=== PATIENT | female | born 1965 | race Caucasian/White ===

== ENCOUNTER 2019-04-08 22:57 | Inpatient (IN) | payer MEDICAID ==
[~2019-04-08] VITALS: Ht 154.9 cm; Wt 74.8 kg
--- NOTE | 2019-04-08 22:57 | NUR ---
PT MARK JACKSONS. TAKEN TO BED 4
[2019-04-08 23:02] VITALS: BP 94/61
--- NOTE | 2019-04-08 23:07 | NUR ---
53 Y/O FEMALE BIBA BLS WITH C/O ABD DISTENTION. PER PT SIEVE MAKER THE DISTENTION WAS NOTED TONIGHT WHEN THEY WERE GETTING HER CHANGED. SIEVE MAKER STATES PT NORMALLY HAS LARGE BM IN THE MORNING, BUT TODAY SHE HAD SMALL BM. ABD SOFT, NONTENDER, AND DISTENDED. PT CALM AND NONVERBAL. VSS
[2019-04-08 23:26] LABS: APPEARANCE,URINE CLEAR (CLEAR); BILIRUBIN,URINE NEGATIVE (NEGATIVE); BLOOD, URINE NEGATIVE (NEGATIVE); COLOR,URINE YELLOW (YELLOW); LEUKOCYTE ESTERASE ,URINE NEGATIVE (NEGATIVE); NITRITE, URINE NEGATIVE (NEGATIVE); UGLUCOSE NEGATIVE (NEGATIVE)
[2019-04-08 23:38] LABS: BASOPHILS % (AUTO) 0.7 % (0.0-2.0); EOSINOPHILS # (AUTO) 0.3 K/uL (0-0.4); EOSINOPHILS % (AUTO) 5.7 % (0.0-4.0); HEMATOCRIT 40.8 % (36-48); HEMOGLOBIN 13.3 g/dL (12.0-16.0); LYMPHOCYTES % (AUTO) 45.2 % (20.5-51.1); MEAN CORPUSCULAR HEMOGLOBIN 31 pg (27-31); MEAN CORPUSCULAR HGB CONC 33 g/dL (33-37); MEAN CORPUSCULAR VOLUME 93.5 fL (80-94); MONOCYTES # (AUTO) 0.4 K/uL (0.8-1.0); MONOCYTES % (AUTO) 9.4 % (1.7-9.3); NEUTROPHILS # (AUTO) 1.7 K/uL (1.8-7.7); PLATELET COUNT (AUTO) 186 K/uL (140-450); RED BLOOD CELL COUNT(AUTO) 4.36 MIL/uL (4.20-5.40); RED CELL DISTRIBUTION WIDTH 13.7 % (11.6-13.7); WHITE BLOOD COUNT (AUTO) 4.4 K/uL (4.8-10.8)
--- NOTE | 2019-04-08 23:40 | NUR ---
PT TAKEN TO CT
--- NOTE | 2019-04-08 23:55 | NUR ---
PT RETURNED FROM CT VIA [facility]
[2019-04-08 23:56] LABS: ANION GAP 13.9 (8-16); CARBON DIOXIDE 26.2 mmol/L (21-32); CREATININE 0.7 mg/dL (0.6-1.3); POTASSIUM 4.1 mmol/L (3.5-5.1)
[2019-04-09] LABS: ALBUMIN 3.7 g/dL (3.4-5.0); TOTAL BILIRUBIN 0.2 mg/dL (0.0-1.0)
--- NOTE | 2019-04-09 00:51 | NUR ---
PT IN BED, RESTING WITH EYES CLOSED. VISIBLE RISE AND FALL OF THE CHEST. PT REMAINS ON MONITOR. VSS. WILL CONTINUE TO MONITOR
--- NOTE | 2019-04-09 01:54 | NUR ---
X-Ray at bedside.
--- NOTE | 2019-04-09 01:57 | NUR ---
LAYIN IN BED ON LT SIDE, RR EVEN AND UNLABORED. NO CRYING IN PAIN. SEIZURE PRECATUTIONS REMAIN IN PLACE, X2 SIDE RAILS RAISED. VSS. REGIONAL HR MANAGER AT PT BEDSIDE. WILL CONTINUE TO MONITOR.
[2019-04-09] MEDS ORDERED: NACL 0.9% 1,000 ML IV SCH (02:49)
[2019-04-09] MEDS ORDERED: LORazepam 2 MG/ML VIAL IM/IVP PRN (02:50)
[2019-04-09] MEDS ORDERED: ACETAMINOPHEN 325 MG TAB PO PRN (02:50)
[2019-04-09] MEDS ORDERED: ONDANSETRON 4 MG/2 ML VIAL IM/IVP PRN (02:50)
[2019-04-09] MEDS ORDERED: DOCUSATE SODIUM 100 MG GELCAP PO PRN (02:50)
[2019-04-09] MEDS ORDERED: ZOLPIDEM 5 MG TAB PO PRN (02:50)
[2019-04-09] MEDS ORDERED: MORPHINE SULFATE 2 MG/ML SYR IVP PRN (02:50)
[2019-04-09] MEDS ORDERED: HYDROcodone/APAP 5/325 MG 1 TAB TAB PO PRN (02:50)
[2019-04-09] MEDS ORDERED: DEXT 5% / NACL 0.45% 1,000 ML IV ONE (03:00)
[2019-04-09] MEDS ORDERED: ATOR10TA51 PO (03:25)
[2019-04-09] MEDS ORDERED: ALEN70TA9 PO (03:25)
[2019-04-09] MEDS ORDERED: DIAZ2.5G2 RC ×2 (03:25→13:55)
[2019-04-09] MEDS ORDERED: CALC1TAB72 PO (03:25)
[2019-04-09] MEDS ORDERED: BACL10TA4 PO (03:25)
[2019-04-09] MEDS ORDERED: TOPI100T33 PO (03:25)
[2019-04-09] MEDS ORDERED: LACO200T PO (03:25)
[2019-04-09] MEDS ORDERED: BISA-188 RC (03:25)
[2019-04-09] MEDS ORDERED: NA P133E RC (03:25)
[2019-04-09] MEDS ORDERED: [UNRECOGNIZED DRUG - OTHER] PO (03:25)
[2019-04-09] MEDS ORDERED: CLOB20TA PO (03:25)
[2019-04-09] MEDS ORDERED: ACET-2619 PO (03:25)
[2019-04-09] MEDS ORDERED: BISACODYL 10 MG SUPP RC SCH (03:30)
[2019-04-09] MEDS ORDERED: SODIUM PHOSPHATE 118 ML ENEM RC PRN (03:35)
[2019-04-09 03:38] LABS: BARBITURATE, URINE NEG. ng/ml (NEG <=200); BENZODIAZEPINE, URINE POS. ng/mL (NEG <=200); CANNABINOID, URINE NEG. ng/mL (NEG <=50); COCAINE, URINE NEG. ng/mL (NEG <=300); OPIATE, URINE NEG. ng/mL (NEG <=2000); PHENCYCLIDINE SCREEN,URINE NEG. ng/mL (NEG <=25)
--- NOTE | 2019-04-09 03:40 | NUR ---
RECEIVED FROM ER NURSE CLAUDIA VIA AIDAN. PATIENT IS CONTRACTED ON RIGHT ARM. IV ACCESS ON LEFT WRIST 20 GAUGE, BOARDED AND WRAPPED DUE TO PATIENT BITING ON LEFT HAND. ON ROOM AIR. SKIN IS INTACT. MRSA SWAB DONE AND SENT TO LAB. INITIAL ASSESSMENT DONE. BELONGINGS CHECKLIST SIGNED. BED IN LOW. ON SEIZURE PRECAUTION. SAFETY MEASURES IN PLACE. WILL CONTINUE TO MONITOR PATIENT.
--- NOTE | 2019-04-09 03:43 | NUR ---
Patient will be admitted to care of DR DAUGHERTY. Admited to TELE. Will go to room 108A. Belongings list completed. Report to RK SHEA.
[2019-04-09 03:46] LABS: CHOL/HDL RATIO 1.6 (1-4.5); MAGNESIUM 2.2 mg/dL (1.8-2.4); PHOSPHORUS 3.9 mg/dL (2.5-4.9); THYROID STIMULATING HORMONE 2.03 uIU/mL (0.34-3.74)
[2019-04-09 03:48] LABS: PROTHROMBIN TIME 10.2 secs (10.8-13.4)
[2019-04-09 04:00] VITALS: BP 110/66
[2019-04-09] MEDS ORDERED: ALBUTEROL SULFATE/IPRATROPIU 3 ML SOL IH PRN (04:05)
--- NOTE | 2019-04-09 04:06 | NUR ---
DULCOLAX SUPPOSITORY GIVEN AT THIS TIME. WILL CONTINUE TO MONITOR PATIENT.
[2019-04-09] MEDS ORDERED: PIPER/TAZO 3.375GM/D5W PREMIX 50 ML IV SCH ×2 (04:30→12:00)
[2019-04-09] MEDS ORDERED: PIPERACILLIN/TAZOBACTAM 3.375 GM VIAL IV ONE (04:40)
[2019-04-09 06:23] LABS: BASOPHILS # (AUTO) 0.1 K/uL (0.00-0.22); BASOPHILS % (AUTO) 1.1 % (0.0-2.0); EOSINOPHILS # (AUTO) 0.3 K/uL (0-0.4); EOSINOPHILS % (AUTO) 5.5 % (0.0-4.0); HEMATOCRIT 40.8 % (36-48); HEMOGLOBIN 13.3 g/dL (12.0-16.0); LYMPHOCYTES # (AUTO) 1.9 K/uL (2.5-16.5); LYMPHOCYTES % (AUTO) 40.2 % (20.5-51.1); MEAN CORPUSCULAR HEMOGLOBIN 31 pg (27-31); MEAN CORPUSCULAR HGB CONC 33 g/dL (33-37); MEAN CORPUSCULAR VOLUME 93.9 fL (80-94); MONOCYTES # (AUTO) 0.3 K/uL (0.8-1.0); MONOCYTES % (AUTO) 6.9 % (1.7-9.3); NEUTROPHILS # (AUTO) 2.1 K/uL (1.8-7.7); NEUTROPHILS % (AUTO) 46.3 % (42.2-75.2); PLATELET COUNT (AUTO) 196 K/uL (140-450); RED BLOOD CELL COUNT(AUTO) 4.34 MIL/uL (4.20-5.40); RED CELL DISTRIBUTION WIDTH 13.9 % (11.6-13.7); WHITE BLOOD COUNT (AUTO) 4.6 K/uL (4.8-10.8)
[2019-04-09 06:33] LABS: ANION GAP 14.3 (8-16); CARBON DIOXIDE 24.6 mmol/L (21-32); CREATININE 0.6 mg/dL (0.6-1.3); POTASSIUM 3.9 mmol/L (3.5-5.1)
[2019-04-09 06:46] LABS: MAGNESIUM 2.1 mg/dL (1.8-2.4); PHOSPHORUS 3.8 mg/dL (2.5-4.9)
--- NOTE | 2019-04-09 06:47 | NUR ---
PT IN STABLE CONDITION. CALL LIGHT PLACED WITHIN PATIENT REACH. WILL ENDORSE TO AM SHIFT NURSE FOR CONTINUITY OF CARE.
[2019-04-09] MEDS: ALBUTEROL SULFATE/IPRATROPIU 3 ML SOL IH SCH ×3 (07:00→20:27)
--- NOTE | 2019-04-09 07:06 | NUR ---
RECEIVED PATIENT FROM NIGHT NURSE, PATIENT IN STABLE CONDITION.
[2019-04-09 08:00] VITALS: BP 103/62
--- NOTE | 2019-04-09 08:22 | NUR ---
PATIENT HAS BEEN SCREENED AND CATEGORIZED MODERATE NUTRITION RISK. PATIENT WILL BE SEEN WITHIN 3-5 DAYS OF ADMISSION. 04/11/19 04/13/[address]
[2019-04-09] MEDS ORDERED: ATORVASTATIN 20 MG TAB ONE (08:42)
[2019-04-09] MEDS ORDERED: CHOLECALCIFEROL PO SCH (09:00)
[2019-04-09] MEDS: ATORVASTATIN 20 MG TAB PO SCH (09:00)
[2019-04-09] MEDS: CHOLECALCIFEROL 1,000 IU TAB PO SCH (09:01)
[2019-04-09] MEDS: BACLOFEN 10 MG TAB PO SCH ×3 (09:01→18:10)
[2019-04-09] MEDS: LACTOBACILLUS RHAMNOSUS GG 1 EACH CAP PO SCH (09:01)
[2019-04-09] MEDS: TOPIRAMATE 100 MG TAB PO SCH ×2 (09:05→20:50)
--- NOTE | 2019-04-09 09:15 | NUR ---
PATIENT CLEANED, CHANGED LINEN CLEANED, PATIENT REPOSITIONED, MEDICATIONS GIVEN AT THIS TIME. WILL CONTINUE TO FOLLOW UP.
[2019-04-09] MEDS ORDERED: MAGNESIUM HYDROXIDE 2400 MG/30 ML UDC PO PRN (11:25)
[2019-04-09 12:00] VITALS: BP 116/53
[2019-04-09] MEDS ORDERED: MINERAL OIL 135 ML ENEM RC SCH (12:00)
[2019-04-09] MEDS: PSYLLIUM 12.2 GM/PKT PO SCH (12:38)
[2019-04-09] MEDS ORDERED: DIAZEPAM 15 MG RC SCH (13:40)
[2019-04-09] MEDS ORDERED: ACETAMINOPHEN 325 MG TAB PO SCH (13:40)
[2019-04-09] MEDS: NACL 0.45% 1,000 ML IV SCH (13:40)
[2019-04-09] MEDS ORDERED: LACT10SO1 PO (13:55)
[2019-04-09] MEDS ORDERED: SYN.1 PO (13:55)
[2019-04-09] MEDS ORDERED: LEVE500T9 PO (13:55)
[2019-04-09] MEDS ORDERED: MAGN400S60 PO (13:55)
[2019-04-09] MEDS ORDERED: FURO-572 PO (13:55)
[2019-04-09] MEDS ORDERED: CLON0.5T PO (13:55)
[2019-04-09] MEDS ORDERED: MIRABULK PO (13:55)
[2019-04-09] MEDS ORDERED: VITA1TAB44 PO (13:55)
[2019-04-09] MEDS ORDERED: LEVE1000 PO (13:55)
--- NOTE | 2019-04-09 14:02 | NUR ---
Shipper Note: Basic Screen: Yes High Risk DC Screen Yes Name: GAYE CHAN [place] Relationship: CONSERVATOR Pre-Admission Living Arrangements: Other Other: [facility] Prior ADL Needs Assistance Current Home Health Name/Tel: N/A Current DME/02 Name/Tel: [employer] Current Hospice Name/Tel: N/A Current Dialysis Name/Tel: N/A Healthcare Decision Maker: Conservator/Public Guardi Advance Directive No Discipline: Case Mgt/Social Svcs Tentative Discharge Plan/Destination: Other Other: [facility] Will require assistance post discharge: No Referred to Janitorial Account Manager: No Tentative Discharge Plan Summary: Patient is a 53-year-old female admitted for pancreatitis. Patient has PMHX of seizures, hypothyroidism, and intellectual disability. Patient was admitted from [facility]. SW contacted Yakov - Visual Merchandising Director to verify demographics of patient. Per Yakov, patient has been a resident at [facility] for 15 years. Yakov reported information for patient's conservator: Gaye Chan [phone] and [facility] worker: Daphnie Barajas [phone]. Yakov reported that each are aware of patient's hospitalization. Yakov stated that facility does not accommodate IV antibiotics. Yakov said that patient's tentative discharge plan is to return to [facility]. No further needs identified. Signature: WESLY Alcaraz Date: Apr 09, 2019 Time: 14:00
[2019-04-09] MEDS ORDERED: AZITHROMYCIN 250 MG TAB PO SCH (15:00)
[2019-04-09 16:00] VITALS: BP 129/87
[2019-04-09] MEDS ORDERED: MANG PO SCH (17:00)
[2019-04-09] MEDS ORDERED: MAG PO SCH (17:00)
[2019-04-09] MEDS ORDERED: [UNRECOGNIZED DRUG - OTHER] PO SCH (17:00)
[2019-04-09] MEDS ORDERED: COPP PO SCH (17:00)
[2019-04-09] MEDS ORDERED: BORON PO SCH (17:00)
[2019-04-09] MEDS ORDERED: D3 PO SCH (17:00)
[2019-04-09] MEDS ORDERED: CALC PO SCH (17:00)
--- NOTE | 2019-04-09 19:09 | NUR ---
ENDORSED CARE TO AGRICULTURAL ENGINEERING TECHNICIANS NURSE. PATIENT IN STABLE CONDITION.
--- NOTE | 2019-04-09 19:25 | NUR ---
RECEIVED BEDSIDE REPORT FROM DAY SHIFT NURSE. PATIENT IS AWAKE AND COOPERATIVE. RESPIRATION EVEN UNLABORED ON ROOM AIR. NO DISTRESS NOTED. SKIN IS WARM AND DRY. IV PATENT AND INTACT BOARDED AND WRAPPED. PLAN OF CARE WAS DISCUSSED. ALL SAFETY MEASURES IN PLACE. BED IS AT LOW POSITION. CALL LIGHT WITHIN REACH. WILL CONTINUE TO MONITOR.
[2019-04-09 20:00] VITALS: BP 120/60
--- NOTE | 2019-04-09 20:00 | NUR ---
INITIAL ASSESSMENT DONE. VITALS WERE TAKEN. PATIENT IN STABLE CONDITION. WILL CONTINUE TO MONITOR.
--- NOTE | 2019-04-09 20:45 | NUR ---
ALL SCHEDULED MEDS WERE GIVEN PER ORDER. NO ASE NOTED. WILL CONTINUE TO MONITOR.
[2019-04-09] MEDS: CLOBAZAM 20 MG PO SCH (20:47)
[2019-04-09] MEDS: levETIRAcetam 500 MG TAB PO SCH (20:48)
[2019-04-09] MEDS: clonazePAM 0.5 MG TAB PO SCH (20:49)
[2019-04-09] MEDS: MAGNESIUM HYDROXIDE 2400 MG/30 ML UDC PO SCH (20:50)
[2019-04-09] MEDS: VIMPAT 200MG TABLET PO SCH (20:51)
[2019-04-09] MEDS ORDERED: LEVETIRACETAM 250 MG PO SCH (21:00)
--- NOTE | 2019-04-09 23:46 | NUR ---
PATIENT IS SCREAMING AND RESTLESS. VITALS WERE TAKEN. PRN ATIVAN GIVEN PER ORDER. WILL CONTINUE TO MONITOR.
[2019-04-10] VITALS: BP 125/55
--- NOTE | 2019-04-10 01:59 | NUR ---
PATIENT SCREAMING, MOANING, AND CRYING FOR AT LEAST 5MINS. PRN PAIN MED ADMINISTERED PER ORDER. WILL CONTINUE TO MONITOR.
--- NOTE | 2019-04-10 02:36 | NUR ---
PATIENT SCREAMING AND MOANING ON AND OFF. NOTIFIED MD. AWAITING FOR NEW ORDERS.
[2019-04-10] MEDS ORDERED: LORazepam 2 MG/ML VIAL IVP SCH (02:55)
--- NOTE | 2019-04-10 02:57 | NUR ---
GIVEN ATIVAN AND MYLANTA MD ORDERED. PT TOLERATED WELL.
[2019-04-10] MEDS ORDERED: MORPHINE SULFATE 2 MG/ML SYR IVP SCH (03:00)
[2019-04-10] MEDS ORDERED: ALUMINUM HYD/MAG/SIMETHICONE 30 ML UDC PO SCH (03:00)
[2019-04-10 04:00] VITALS: BP 110/56
[2019-04-10] MEDS ORDERED: KETOROLAC 30 MG/ML VIAL IVP SCH (04:00)
--- NOTE | 2019-04-10 04:02 | NUR ---
PATIENT STILL SCREAMING AND MOANING ON AND OFF. ORDER TORADOL 30MG FOR PAIN. WILL CONTINUE TO MONITOR.
--- NOTE | 2019-04-10 04:16 | NUR ---
VITALS WERE TAKEN. PATIENT IN STABLE CONDITION. NO DISTRESS NOTED. WILL CONTINUE TO MONITOR.
[2019-04-10] MEDS ORDERED: SIMETHICONE 40 MG/0.6 ML PO SCH (05:30)
[2019-04-10] MEDS: NACL 0.45% 1,000 ML IV SCH ×2 (06:09→22:58)
[2019-04-10] MEDS: LEVOTHYROXINE 0.1 MG TAB PO SCH (06:42)
[2019-04-10] MEDS: CLOBAZAM 20 MG PO SCH ×2 (06:42→20:00)
[2019-04-10] MEDS: ALBUTEROL SULFATE/IPRATROPIU 3 ML SOL IH SCH ×3 (07:19→19:41)
--- NOTE | 2019-04-10 07:27 | NUR ---
ENDORSED PATIENT TO DAY SHIFT NURSE. PATIENT IN STABLE CONDITION
[2019-04-10] MEDS ORDERED: SODIUM PHOSPHATE 118 ML ENEM RC SCH (07:29)
--- NOTE | 2019-04-10 07:30 | NUR ---
RECEIVED PT FROM HOME HEALTH ADMINISTRATOR NURSETRISH, PT IS AWAKE AND IS AGITATED, MEDICINE FOR AGITATION WAS GIVEN BY HOME HEALTH ADMINISTRATOR NURSE, SIDE RAILS AND CALL LIGHT WITHIN REACH, BED ALARM ACTIVATED, SEIZURE PRECAUTION ENFORCED, BED IN LOW POSITION, PT HAS MENTAL RETARDATION, IV LINE ON THE LEFT FA G. 20 WITH D5 1?2 NS INFUSING AT 60ML/HR, NO SIGN OF DISTRESS NOTED AND WILL MONITOR PT.
[2019-04-10 08:00] VITALS: BP 112/62
[2019-04-10] MEDS ORDERED: NON-FORMULARY ITEM (Atorvastatin Calcium 1 TAB) PO SCH (09:00)
[2019-04-10] MEDS ORDERED: NON-FORMULARY ITEM (Lactulose 10 GM) PO SCH (09:00)
[2019-04-10] MEDS: LACTOBACILLUS RHAMNOSUS GG 1 EACH CAP PO SCH (09:24)
[2019-04-10] MEDS: AZITHROMYCIN 250 MG TAB PO SCH (09:25)
[2019-04-10] MEDS: BACLOFEN 10 MG TAB PO SCH ×3 (09:25→17:37)
[2019-04-10] MEDS: CHOLECALCIFEROL 1,000 IU TAB PO SCH (09:26)
[2019-04-10] MEDS: FUROSEMIDE 20 MG TAB PO SCH (09:26)
[2019-04-10] MEDS: TOPIRAMATE 100 MG TAB PO SCH ×2 (09:27→21:52)
[2019-04-10] MEDS: VIT-B COMP/VIT-C/FOLIC ACID 1 TAB PO SCH (09:27)
[2019-04-10] MEDS: levETIRAcetam 500 MG TAB PO SCH ×2 (09:27→21:53)
[2019-04-10] MEDS: ATORVASTATIN 20 MG TAB PO SCH (09:30)
[2019-04-10] MEDS: clonazePAM 0.5 MG TAB PO SCH ×2 (09:32→21:54)
--- NOTE | 2019-04-10 09:32 | NUR ---
PT IS AWAKE AND ORAL MEDICATIONS WERE GIVEN TO PT WILL MONITOR PT.
[2019-04-10] MEDS: POLYETHYLENE GLYCOL 17 GM/PKT PO SCH (09:34)
[2019-04-10] MEDS: PSYLLIUM 12.2 GM/PKT PO SCH (09:35)
[2019-04-10] MEDS: VIMPAT 200MG TABLET PO SCH ×2 (09:53→21:48)
[2019-04-10] MEDS: HYDRAGUARD CREAM TP SCH (10:00)
[2019-04-10 10:06] LABS: BASOPHILS % (AUTO) 0.5 % (0.0-2.0); EOSINOPHILS # (AUTO) 0.2 K/uL (0-0.4); EOSINOPHILS % (AUTO) 3.6 % (0.0-4.0); HEMATOCRIT 38.6 % (36-48); HEMOGLOBIN 12.8 g/dL (12.0-16.0); LYMPHOCYTES # (AUTO) 1.7 K/uL (2.5-16.5); LYMPHOCYTES % (AUTO) 38.6 % (20.5-51.1); MEAN CORPUSCULAR HEMOGLOBIN 31 pg (27-31); MEAN CORPUSCULAR HGB CONC 33 g/dL (33-37); MEAN CORPUSCULAR VOLUME 92.4 fL (80-94); MONOCYTES # (AUTO) 0.3 K/uL (0.8-1.0); MONOCYTES % (AUTO) 6.6 % (1.7-9.3); NEUTROPHILS # (AUTO) 2.2 K/uL (1.8-7.7); NEUTROPHILS % (AUTO) 50.7 % (42.2-75.2); PLATELET COUNT (AUTO) 183 K/uL (140-450); RED BLOOD CELL COUNT(AUTO) 4.18 MIL/uL (4.20-5.40); RED CELL DISTRIBUTION WIDTH 13.8 % (11.6-13.7); WHITE BLOOD COUNT (AUTO) 4.3 K/uL (4.8-10.8)
[2019-04-10 10:26] LABS: ANION GAP 14.3 (8-16); CARBON DIOXIDE 22.3 mmol/L (21-32); CREATININE 0.6 mg/dL (0.6-1.3); POTASSIUM 3.6 mmol/L (3.5-5.1)
[2019-04-10 10:33] LABS: MAGNESIUM 2.3 mg/dL (1.8-2.4); PHOSPHORUS 2.7 mg/dL (2.5-4.9)
--- NOTE | 2019-04-10 11:15 | NUR ---
PT WQS NOTED TO BE SO SLEEPY BUT AROUSABLE, V/S STABLE, WAS TRANSFERRED TO MS NOW.
[2019-04-10 12:00] VITALS: BP 90/45
--- NOTE | 2019-04-10 13:15 | NUR ---
PT' SACRAL AREA WAS REINFORCED WITH OPTIFOAM DRESSING FOR THE ERYTHEMA NOTED BROUGHT BY IAD, HYDRAGUARD APPLIED.
[2019-04-10 16:00] VITALS: BP 115/62
--- NOTE | 2019-04-10 16:15 | NUR ---
INFORMED THAT PT IS RUNNING SINUS BRADYCARDIA AND IS SO SLEEPY BUT AROUSABLE, DR. BURROUGHS SAID THAT HE WILL TRANSFER TO TELE UNTIL FULLY AWAKE.
[2019-04-10] MEDS ORDERED: MELATONIN 3 MG TAB PO PRN (16:45)
--- NOTE | 2019-04-10 19:30 | NUR ---
RECEIVED REPORT FROM AM RN IN BED AWAKE AND ALERT. NO RESTLESSNESS NOTED AT THIS TIME. NONE VERBAL AT THIS TIME. TOTAL CARE RT HX. MENTAL RETARDATION. BED RAILS PADDED FOR SEIZURE PRECAUTIONS RT HX. OF SEIZURES. WITH IVF INFUSING WELL. IVF SITE WITH KERLIX WRAP RT PT. PER PREVIOUS RN BITES INTO TUBING. NEEDS WILL BE ANTICIPATED AND WILL BE MET. TOTAL CARE. TELEMETRY MONITORING. BED ALARM ON.
--- NOTE | 2019-04-10 19:35 | NUR ---
ENDORSED PT TO WARD SECRETARY NURSE FOR CONTINUITY OF CARE.
[2019-04-10 20:25] VITALS: BP 124/55
[2019-04-10] MEDS: MAGNESIUM HYDROXIDE 2400 MG/30 ML UDC PO SCH (21:54)
--- NOTE | 2019-04-10 22:00 | NUR ---
PT. SLEEPING BUT WAKES UP EASILY WHEN TOUCHED. TURNED TO SIDES BY CNAS WITH PILLOW SUPPORT TO PRESSURE AREAS. TOTAL CARE. NO RESTLESSNESS NOTED. TELEMETRY MONITORING.
[2019-04-11] VITALS: BP 115/56
--- NOTE | 2019-04-11 00:30 | NUR ---
PT. AWAKE AND BEING TURNED BY CNAS TO SIDE. NO RESTLESSNESS. SMILING A LOT. AFEBRILE. KEPT CLEAN AND DRY. BED ALARM ON.
--- NOTE | 2019-04-11 02:55 | NUR ---
SLEEPING AT THIS TIME. NEEDS ANTICIPATED AND WILL BE MET.
[2019-04-11 04:00] VITALS: BP 100/50
[2019-04-11] MEDS: ALBUTEROL SULFATE/IPRATROPIU 3 ML SOL IH SCH ×2 (06:22→13:35)
[2019-04-11] MEDS: LEVOTHYROXINE 0.1 MG TAB PO SCH (06:57)
[2019-04-11] MEDS: CLOBAZAM 20 MG PO SCH (06:57)
--- NOTE | 2019-04-11 07:03 | NUR ---
WILL ENDORSE TO AM RN FOR CONTINUITY OF CARE. PT. AT THIS TIME AWAKE AND ALERT.
--- NOTE | 2019-04-11 07:15 | NUR ---
RECEIVED PT FROM SERVICES TECH NURSEROLAND, PT IS AWAKE AND CALM SEATED ON HER BED WITH SIDE RAILS UP AND CALL LIGHT WITHIN REACH, FALL PRECAUTION ENFORCED, BED IN LOW POSITION, SEIZURE PRECAUTION IN PLACE, IV LINE ON THE LEFT FA G. 20 WITH 1/2 NS INFUSING AT 60ML/HR, NON-VERBAL WITH MENTAL DISABILITY, NO SIGN OF DISTRESS NOTED AND WILL MONITOR PT.
[2019-04-11 07:30] VITALS: BP 118/59
[2019-04-11] MEDS: POLYETHYLENE GLYCOL 17 GM/PKT PO SCH (08:36)
[2019-04-11] MEDS: PSYLLIUM 12.2 GM/PKT PO SCH (08:37)
[2019-04-11] MEDS: LACTOBACILLUS RHAMNOSUS GG 1 EACH CAP PO SCH (08:38)
[2019-04-11] MEDS: AZITHROMYCIN 250 MG TAB PO SCH (08:39)
[2019-04-11] MEDS: levETIRAcetam 500 MG TAB PO SCH (08:39)
[2019-04-11] MEDS: TOPIRAMATE 100 MG TAB PO SCH (08:40)
[2019-04-11] MEDS: ATORVASTATIN 20 MG TAB PO SCH (08:40)
--- NOTE | 2019-04-11 08:40 | NUR ---
PT IS AWAKE AND ORAL MEDICATIONS WERE GIVEN, KLONOPIN WAS HELD AND NOT GIVEN PER DR. AGRAWAL, MEDICATIONS CRUSHED AND GIVEN WITH APPLE SAUCE, TOLERATED, NO SIGN OF DISTRESS NOTED
[2019-04-11] MEDS: VIT-B COMP/VIT-C/FOLIC ACID 1 TAB PO SCH (08:41)
[2019-04-11] MEDS: CHOLECALCIFEROL 1,000 IU TAB PO SCH (08:41)
[2019-04-11] MEDS: BACLOFEN 10 MG TAB PO SCH ×2 (08:41→12:26)
[2019-04-11] MEDS: FUROSEMIDE 20 MG TAB PO SCH (08:45)
[2019-04-11] MEDS: clonazePAM 0.5 MG TAB PO SCH (08:45)
[2019-04-11] MEDS ORDERED: AMOX-1000 PO (08:51)
[2019-04-11] MEDS ORDERED: METPCK PO (08:51)
[2019-04-11] MEDS ORDERED: DOCU-299 PO (08:51)
--- NOTE | 2019-04-11 09:04 | NUR ---
CONTACTED [facility], SPOKE WITH DAVE (OPERATIONS PLANNER) REGARDING PT'S DISCHARGE BACK TO THEIR FACILITY. PER DAVE, SHE WILL CALL BACK FOR THE ETA FOR FOREIGN LANGUAGE TEACHER. MIRANDA-RK ASSIGNED MADE AWARE.
[2019-04-11] MEDS: VIMPAT 200MG TABLET PO SCH (09:08)
[2019-04-11] MEDS: HYDRAGUARD CREAM TP SCH (09:16)
[2019-04-11] MEDS ORDERED: BISA-213 RC (09:22)
--- NOTE | 2019-04-11 10:00 | NUR ---
DAVE CALLED BACK WITH [facility] FOR INJECTION MOLDING MACHINE OPERATOR AFTER LUNCH. MIRANDA BECKMAN AWARE.
--- NOTE | 2019-04-11 11:30 | NUR ---
PT'S SACRAL ASSESSMENT WAS DONE AND HYDRAGUARD WAS APPLIED FOR BARRIER AND PROTECTION, PT WAS CLEANED AND DRESSED UP AND MADE READY FOR DISCHARGE, SLASHER HAND ZEKE ON THE BEDSIDE.
[2019-04-11 12:00] VITALS: BP 115/60
[2019-04-11 12:14] LABS: BASOPHILS % (AUTO) 0.8 % (0.0-2.0); EOSINOPHILS # (AUTO) 0.2 K/uL (0-0.4); EOSINOPHILS % (AUTO) 3.8 % (0.0-4.0); HEMATOCRIT 40.3 % (36-48); HEMOGLOBIN 13.3 g/dL (12.0-16.0); LYMPHOCYTES # (AUTO) 1.6 K/uL (2.5-16.5); LYMPHOCYTES % (AUTO) 30.2 % (20.5-51.1); MEAN CORPUSCULAR HEMOGLOBIN 31 pg (27-31); MEAN CORPUSCULAR HGB CONC 33 g/dL (33-37); MEAN CORPUSCULAR VOLUME 92.7 fL (80-94); MONOCYTES # (AUTO) 0.4 K/uL (0.8-1.0); MONOCYTES % (AUTO) 7.8 % (1.7-9.3); NEUTROPHILS % (AUTO) 57.4 % (42.2-75.2); PLATELET COUNT (AUTO) 198 K/uL (140-450); RED BLOOD CELL COUNT(AUTO) 4.35 MIL/uL (4.20-5.40); RED CELL DISTRIBUTION WIDTH 13.9 % (11.6-13.7); WHITE BLOOD COUNT (AUTO) 5.2 K/uL (4.8-10.8)
[2019-04-11 12:37] LABS: CARBON DIOXIDE 23.6 mmol/L (21-32); CREATININE 0.6 mg/dL (0.6-1.3); POTASSIUM 3.6 mmol/L (3.5-5.1)
[2019-04-11 12:39] LABS: MAGNESIUM 2.2 mg/dL (1.8-2.4); PHOSPHORUS 3.1 mg/dL (2.5-4.9)
--- NOTE | 2019-04-11 13:00 | NUR ---
PT'S IS AWAKE AND WAS BEING ATTENDED BY ZEKE BOW STRING MAKER
--- NOTE | 2019-04-11 13:35 | NUR ---
PT HAS BEEN DISCHARGED
--- NOTE | 2019-04-11 13:55 | NUR ---
DISCHARGED PT TO BOARD AND CARE, UNDER [facility], WITH PRINCIPAL PRODUCT MANAGER ZEKE, DISCHARGED TEACHINGS AND MEDICATIONS PRESCRIPTION WAS GIVEN TO ZEKE AND VERBALIZED UNDERSTANDING IN BEHALF OF THE PT, IV LINE AND ARM BAND WERE REMOVED AND PT IS STABLE AT THIS TIME.
[2019-04-14] MEDS ORDERED: ALENDRONATE SODIUM 70 MG TAB PO SCH (06:00)
== END 2019-04-11 13:55 | DRG 254 ==
LOC: MED 22:57 → MTU 04-09 02:51
PROVIDERS: ADMIT General Practice; ATTEND General Practice
DX: K92.89 Other specified diseases of the digestive system (principal); J18.9 Pneumonia, unspecified organism; E87.0 Hyperosmolality and hypernatremia; K86.1 Other chronic pancreatitis; E03.9 Hypothyroidism, unspecified; K56.41 Fecal impaction; F79 Unspecified intellectual disabilities; G40.909 Epilepsy, unspecified, not intractable, without status epilepticus; F41.9 Anxiety disorder, unspecified; E78.5 Hyperlipidemia, unspecified; M81.0 Age-related osteoporosis without current pathological fracture
CPT/HCPCS: 36415; 71045; 74018; 80048; 80053; 80305; 81003; 81025; 82150; 82948; 83036; 83690; 83735; 84100; 84134; 84443; 85025; 85610; 85730; 87040; 87081; 87086; 94640; 99285; J0696; J1644; J1885; J2060; J2270; J2543; J7060; J7620; Q0092

== ENCOUNTER 2019-06-02 13:53 | Inpatient (IN) | payer MEDICAID ==
[~2019-06-02] VITALS: Ht 154.9 cm; Wt 86.6 kg
[2019-06-02] VITALS (19 sets, daily range): BP systolic 102–118; BP diastolic 38–80
[~2019-06-02 13:53] MED LIST: ACET-2619 PO; ALEN70TA9 PO; AMOX-1000 PO; ATOR10TA51 PO; BACL10TA4 PO; BISA-213 RC; CALC1TAB72 PO; CLOB20TA PO; CLON0.5T PO; DIAZ2.5G2 RC; DOCU-299 PO; FURO-572 PO; LACO200T PO; LACT10SO1 PO; LEVE1000 PO; LEVE500T9 PO; MAGN400S60 PO; METPCK PO; MIRABULK PO; NA P133E RC; SYN.1 PO; TOPI100T33 PO; VITA1TAB44 PO; [UNRECOGNIZED DRUG - OTHER] PO
--- NOTE | 2019-06-02 13:53 | NUR ---
Patient BIBA BLS from [facility], transferred to bed 10. RN evaluating patient at bedside.
[2019-06-02] MEDS ORDERED: NACL 0.9% 1,000 ML IV ONE ×3 (14:05→16:10)
--- NOTE | 2019-06-02 14:06 | NUR ---
ERMD AT BEDSIDE
--- NOTE | 2019-06-02 14:06 | NUR ---
54 Y/O F BIBA C/C HYPOTHERMIA,BRADYCARDIA. PER EMS IT HAS BEEN ONGOING IN FACILITY BUT TODAY HAS BEEN "THE LOWEST HEART RATE SEEN AND LOW TEMPERATURE". PT NKA. HX SEIZURES,INTELECTUAL DISABILITY. RX SEE CHART. NO N/V/D.
--- NOTE | 2019-06-02 14:10 | NUR ---
LAB AT BEDSIDE
--- NOTE | 2019-06-02 14:12 | NUR ---
PT ON SAMANTHA ZHONG ; WARMING MEASURES
--- NOTE | 2019-06-02 14:12 | NUR ---
XRAY AT BEDSIDE
--- NOTE | 2019-06-02 14:43 | NUR ---
FLU SWAP COLLECTED
[2019-06-02 14:47] LABS: BASOPHILS % (AUTO) 0.7 % (0.0-2.0); EOSINOPHILS # (AUTO) 0.1 K/uL (0-0.4); EOSINOPHILS % (AUTO) 3.4 % (0.0-4.0); HEMATOCRIT 40.8 % (36-48); HEMOGLOBIN 13.2 g/dL (12.0-16.0); LYMPHOCYTES # (AUTO) 1.3 K/uL (2.5-16.5); LYMPHOCYTES % (AUTO) 29.8 % (20.5-51.1); MEAN CORPUSCULAR HEMOGLOBIN 30 pg (27-31); MEAN CORPUSCULAR HGB CONC 32 g/dL (33-37); MEAN CORPUSCULAR VOLUME 93.2 fL (80-94); MONOCYTES # (AUTO) 0.3 K/uL (0.8-1.0); MONOCYTES % (AUTO) 6.4 % (1.7-9.3); NEUTROPHILS # (AUTO) 2.6 K/uL (1.8-7.7); NEUTROPHILS % (AUTO) 59.7 % (42.2-75.2); PLATELET COUNT (AUTO) 154 K/uL (140-450); RED BLOOD CELL COUNT(AUTO) 4.38 MIL/uL (4.20-5.40); RED CELL DISTRIBUTION WIDTH 14.1 % (11.6-13.7); WHITE BLOOD COUNT (AUTO) 4.4 K/uL (4.8-10.8)
[2019-06-02] MEDS ORDERED: VANCOMYCIN 1,000 MG in DEXTROSE 5% 250 ML IV ONE (15:20)
[2019-06-02] MEDS ORDERED: PIPERACILLIN/TAZOBACTAM 3.375 GM in DEXTROSE 5% 50 ML IV ONE (15:20)
[2019-06-02 15:37] LABS: ALBUMIN 3.1 g/dL (3.4-5.0); ANION GAP 12.3 (8-16); CARBON DIOXIDE 26.3 mmol/L (21-32); CREATININE 0.7 mg/dL (0.6-1.3); POTASSIUM 4.6 mmol/L (3.5-5.1); TOTAL BILIRUBIN 0.2 mg/dL (0.0-1.0)
[2019-06-02] MEDS ORDERED: PIPERACILLIN/TAZOBACTAM 3.375 GM VIAL IV ONE ×3 (15:42→23:02)
[2019-06-02] MEDS ORDERED: VANCOMYCIN 1,000 MG VIAL ONE ×2 (15:46→23:02)
--- NOTE | 2019-06-02 15:59 | NUR ---
ERMD AWARE OF BLOOD PRESSURE AND RECTAL TEMPERATURE
--- NOTE | 2019-06-02 16:09 | NUR ---
ERMD AT BEDSIDE
--- NOTE | 2019-06-02 16:22 | NUR ---
US AT BEDSIDE
--- NOTE | 2019-06-02 16:37 | NUR ---
ERMD NOTIFIED OF BLOOD PRESSURE
[2019-06-02] MEDS ORDERED: NOREPINEPHRINE 4 MG in DEXTROSE 5% 250 ML IV ONE (16:45)
[2019-06-02] MEDS ORDERED: NOREPINEPHRINE 4 MG/4 ML VIAL IV ONE (16:47)
--- NOTE | 2019-06-02 16:52 | NUR ---
LEVOPHED STARTED PER MD ORDERS ---- SEE IV MEDICATION FLOWSHEET
[2019-06-02 17:02] LABS: THYROID STIMULATING HORMONE 0.63 uIU/mL (0.34-3.74)
[2019-06-02 18:32] LABS: FREE T4 (FREE THYROXINE) 2.39 ng/dL (0.76-1.46)
--- NOTE | 2019-06-02 18:44 | NUR ---
Patient will be admitted to care of [facility]. Admited to ICU 1. Will go to room 1. Belongings list completed. Report to RON BECKMAN.
--- NOTE | 2019-06-02 18:48 | NUR ---
PT ARRIVED TO UNIT FROM ER. TRANSFERRED PT TO BED, CONNECTED PT TO EKG AND VITAL SIGN MONITOR. HR 77, BP 127/66, O2 SAT 96% O2 2L VIA NC, RR12, SR. PT IS AOX0, APPEARS TO BE LETHARGIC. PERRL. OPEN EYES SPONTANEOUSLY. SCALES CATH IN PLACE DRAINING CLEAR YELLOW URINE. LEFT FEMORAL CVC NOTED, DRESSING INTACT AND DRY, RUNNING LEVOPHED AT 7MCG/MIN. FALL RISK IN PLACE, HOB 30DEG, MRSA SWAB DONE.
--- NOTE | 2019-06-02 19:45 | NUR ---
REPORT GIVEN BY AM SHIFT RN, PT IS NEW ADMIT FROM [facility]. PT OPEN EYES, NO S/S OF ANY DISTRESS, NO SOB.PT ON O2 AT 2LPM VIA N/C. SR ON MONITOR. CONT ON IV LEVOPHED AT 7 MCG/MIN IVY WELL. CENTRAL LINE TO LEFT FEMORAL INTACT WELL. PERIPHERAL IV NO 20 TO RIGHT HAND AND NO 24 TO LEFT HAND.SKIN WARM TO TOUCH. CONT ON BEAR HUGGER. T.96.7. SHANTANU BRYANT RN FROM FACILITY AT BED SIDE. PER SHANTANU SHE WILL WILL BRING SEIZURE MEDS FROM FACILITY. PT LOOK CALM AT THIS TIME. SKIN INTACT. F/C IN PLACE WITH YELLOW CLEAR URINE. PT UNDER CARE OF DR. MCDANIEL. AWARE THAT PT IS ADMITTED. PER THAT HE WILL PUT ALL MEDS ORDERS. NEW ORDER GIVEN AT THIS TIME FOR NS AT 50 CC/HR ,SCD, PUREED CARDIAC DIET,FULL CODE AND MRSA SCREENING. CONT TO MONITOR .
[2019-06-02] MEDS ORDERED: NACL 0.9% 1,000 ML IV SCH (19:55)
--- NOTE | 2019-06-02 21:30 | NUR ---
[facility] STAFF COME TO DROP VIMPAT 200 MG 18 TABS AND CLOBAZAM 20 MG 18 TABS. WILL SENT TO PHARMACY IN AM FOR CLARIFICATION.
[2019-06-02 21:40] LABS: APPEARANCE,URINE CLOUDY (CLEAR); BILIRUBIN,URINE NEGATIVE (NEGATIVE); BLOOD, URINE NEGATIVE (NEGATIVE); COLOR,URINE YELLOW (YELLOW); LEUKOCYTE ESTERASE ,URINE 1+ (NEGATIVE); NITRITE, URINE POSITIVE (NEGATIVE); PH,URINE 6.5 (5.0-9.0); UGLUCOSE NEGATIVE (NEGATIVE)
--- NOTE | 2019-06-02 21:57 | NUR ---
HCG-QUALITATIVE previously reported as: POSITIVE H , AND CLARIFIED BY MAYCO Che REFRACTORY WORKER, SHE SAID THE URINE HCG QUALITATIVE IS NEGATIVE. SERUM HCG QUANT IS 5 AT THIS TIME. PER MAYCO Che IF RESULT IS 6 AND MORE POSITIVE AT THIS TIME PT SERUM HCG QUANT IS ONLY 5.
[2019-06-02 22:01] LABS: RBC,URINE NONE SEEN /HPF (0-5)
[2019-06-02] MEDS ORDERED: DIAZEPAM 15 MG RC SCH (22:05)
[2019-06-02] MEDS ORDERED: ACETAMINOPHEN 325 MG TAB PO PRN ×2 (22:05→22:10)
[2019-06-02] MEDS ORDERED: DOCUSATE SODIUM 100 MG GELCAP PO PRN (22:05)
[2019-06-02] MEDS ORDERED: BISACODYL 10 MG SUPP RC PRN (22:05)
[2019-06-02] MEDS ORDERED: DEXT 5% /NACL 0.9% 1,000 ML IV SCH (22:10)
[2019-06-02] MEDS ORDERED: ONDANSETRON 4 MG/2 ML VIAL IVP PRN (22:10)
[2019-06-02] MEDS ORDERED: HYDROcodone/APAP 5/325 MG 1 TAB TAB PO PRN ×2 (22:10)
[2019-06-02] MEDS ORDERED: VANCOMYCIN PER PHARMACY MC PRN (22:10)
--- NOTE | 2019-06-02 22:10 | NUR ---
DR.PALIWAL AGUSTIN MADE AWARE ABOUT THE SERUM QUAL REPORT WAS POSOTIVE AND URINE TEST WAS NEGATIVE. SERUM HCG QUANT 5. PER MD TO REPEAT URINE TEST AND TEST SERUM IN AM. ORDER NOTED. AND SAID HE STILL WORKING ON MEDS LIST FOR PT.
--- NOTE | 2019-06-02 23:20 | NUR ---
PT SLEEPING WELL,NO S/S OF PAIN. CARDIAC PANEL DRAWN. ZOSYN GIVEN ORDER. IV D5 IN NS AT 100 CC/HR STARTED ORDER.
[2019-06-02 23:32] LABS: CREATINE KINASE MB 1.1 ng/mL (0-3.6)
[2019-06-03] VITALS (94 sets, daily range): BP systolic 82–122; BP diastolic 32–69
[2019-06-03] MEDS ORDERED: PIPER/TAZO 3.375GM/D5W PREMIX 50 ML IV SCH
--- NOTE | 2019-06-03 00:01 | NUR ---
LEVOPHED TITRATED DOWN TO 5 MCG/MIN=18/75 ML.
[2019-06-03] MEDS: NOREPINEPHRINE 4 MG in DEXTROSE 5% 250 ML IV PRN ×2 (01:47→17:56)
--- NOTE | 2019-06-03 03:00 | NUR ---
PT SLEEPING WELL
[2019-06-03] MEDS ORDERED: VANCOMYCIN 1GM/DEXT 5% PREMIX 200 ML IV SCH (04:00)
--- NOTE | 2019-06-03 05:00 | NUR ---
AM CARE GIVEN ,BED BATH , ORAL CARE, F/C CARE. PT HAS MEDIUM SOFT YELLOW BM X1 .KEPT PT CLEAN AND DRYL.
[2019-06-03] MEDS: LEVOTHYROXINE 0.1 MG TAB PO SCH (06:47)
[2019-06-03 06:53] LABS: BASOPHILS % (AUTO) 0.5 % (0.0-2.0); EOSINOPHILS # (AUTO) 0.1 K/uL (0-0.4); EOSINOPHILS % (AUTO) 1.4 % (0.0-4.0); HEMATOCRIT 36.3 % (36-48); HEMOGLOBIN 11.9 g/dL (12.0-16.0); LYMPHOCYTES # (AUTO) 1.3 K/uL (2.5-16.5); LYMPHOCYTES % (AUTO) 19.1 % (20.5-51.1); MEAN CORPUSCULAR HEMOGLOBIN 30 pg (27-31); MEAN CORPUSCULAR HGB CONC 33 g/dL (33-37); MEAN CORPUSCULAR VOLUME 91.9 fL (80-94); MONOCYTES # (AUTO) 0.4 K/uL (0.8-1.0); MONOCYTES % (AUTO) 5.3 % (1.7-9.3); NEUTROPHILS % (AUTO) 73.7 % (42.2-75.2); PLATELET COUNT (AUTO) 164 K/uL (140-450); RED BLOOD CELL COUNT(AUTO) 3.95 MIL/uL (4.20-5.40); RED CELL DISTRIBUTION WIDTH 13.8 % (11.6-13.7); WHITE BLOOD COUNT (AUTO) 6.8 K/uL (4.8-10.8)
[2019-06-03 07:14] LABS: ALBUMIN 2.5 g/dL (3.4-5.0); ANION GAP 11.7 (8-16); CARBON DIOXIDE 23.4 mmol/L (21-32); CREATININE 0.7 mg/dL (0.6-1.3); PHOSPHORUS 2.7 mg/dL (2.5-4.9); POTASSIUM 4.1 mmol/L (3.5-5.1); TOTAL BILIRUBIN 0.1 mg/dL (0.0-1.0)
--- NOTE | 2019-06-03 07:24 | NUR ---
REPORT GIVEN TO RON BECKMAN AM SHIFT, PT IS AWAKE, NO DISTRESS NOTED.
--- NOTE | 2019-06-03 07:25 | NUR ---
RECEIVED PT REPORT FROM WEARING APPAREL FOLDER RNBRENT. PT AWAKE, LETHARGIC, OX0. OPEN EYES SPONTANEOUSLY, PERRL. NO S/S OF ACUTE DISTRESS ON O2 AT 2LPM VIA N/C. SR ON MONITOR. CENTRAL LINE TO LEFT FEMORAL, DRESSING INTACT, RUNNING LEVOPHED AT 5 MCG/MIN. PERIPHERAL IV 20G TO RIGHT FA AND 24G TO LEFT FA. SKIN DRY, INTACT AND WARM TO TOUCH. TEMP 99.4, TURNED OFF BEAR HUGGER. SR ON MONITOR, S1S2 HEARD. LUNGS SOUNDS COARSE, BOWELS SOUNDS ACTIVE. RIGHT UE CONTRACTED. PT IS NON AMBULATORY PER DIRECTOR OF IT OPERATIONS AT PT'S FACILITY. SCALES CATH IN PLACE WITH CLEAR YELLOW URINE. FALL AND SZ PRECAUTIONS IN PLACE.
--- NOTE | 2019-06-03 08:16 | NUR ---
PATIENT HAS BEEN SCREENED AND CATEGORIZED MODERATE NUTRITION RISK. PATIENT WILL BE SEEN WITHIN 3-5 DAYS OF ADMISSION. 06/05/19 06/07/[address]
[2019-06-03] MEDS: LACTULOSE 20 GM/30 ML UDC PO SCH (08:53)
[2019-06-03] MEDS: PIPERACILLIN/TAZOBACTAM 3.375 GM in DEXTROSE 5% 50 ML IV SCH ×2 (08:53→16:09)
[2019-06-03] MEDS: POLYETHYLENE GLYCOL 17 GM/PKT PO SCH (08:54)
[2019-06-03] MEDS: ATORVASTATIN 20 MG TAB PO SCH (08:56)
[2019-06-03] MEDS: BACLOFEN 10 MG TAB PO SCH ×4 (08:56→17:33)
[2019-06-03] MEDS: TOPIRAMATE 100 MG TAB PO SCH ×2 (08:57→21:12)
[2019-06-03] MEDS: VIT-B COMP/VIT-C/FOLIC ACID 1 TAB PO SCH (08:57)
[2019-06-03] MEDS: clonazePAM 0.5 MG TAB PO SCH ×2 (08:58→21:12)
[2019-06-03] MEDS: CLOBAZAM 20 MG PO SCH ×2 (08:59→21:22)
[2019-06-03] MEDS: FUROSEMIDE 20 MG TAB PO SCH (08:59)
[2019-06-03] MEDS ORDERED: D3 PO SCH (09:00)
[2019-06-03] MEDS ORDERED: [UNRECOGNIZED DRUG - OTHER] PO SCH (09:00)
[2019-06-03] MEDS ORDERED: MAG PO SCH (09:00)
[2019-06-03] MEDS ORDERED: NON-FORMULARY ITEM (Atorvastatin Calcium 1 TAB) PO SCH (09:00)
[2019-06-03] MEDS ORDERED: MANG PO SCH (09:00)
[2019-06-03] MEDS ORDERED: LACOSAMIDE 200 MG PO SCH (09:00)
[2019-06-03] MEDS ORDERED: CALC PO SCH (09:00)
[2019-06-03] MEDS ORDERED: BORON PO SCH (09:00)
[2019-06-03] MEDS ORDERED: LEVETIRACETAM 250 MG PO SCH (09:00)
[2019-06-03] MEDS ORDERED: levETIRAcetam 500 MG TAB PO SCH ×2 (09:00→21:00)
[2019-06-03] MEDS ORDERED: COPP PO SCH (09:00)
[2019-06-03] MEDS ORDERED: CLOBAZAM 20 MG PO SCH (09:00)
[2019-06-03] MEDS ORDERED: NON-FORMULARY ITEM (Lactulose 10 GM) PO SCH (09:00)
[2019-06-03] MEDS ORDERED: CHOLECALCIFEROL PO SCH (09:00)
[2019-06-03] MEDS ORDERED: NON-FORMULARY ITEM (Lacosamide (Vimpat) 200 MG) PO SCH (09:00)
[2019-06-03] MEDS: CHOLECALCIFEROL 1,000 IU TAB PO SCH (09:01)
[2019-06-03] MEDS: DEXT 5% / NACL 0.45% 1,000 ML IV SCH ×2 (09:50→21:32)
--- NOTE | 2019-06-03 10:20 | NUR ---
SPOKE WITH DR MCDANIEL OVER THE PHONE. MADE HIM AWARE PT HAS LOOSE BROWN STOOL. HAVING CONCERN OF PT'S SWALLOWING ABILITY. ST KING ORDERED. TITRATING DOWN LEVO AND STARTING MIDODRINE 5MG BID.
--- NOTE | 2019-06-03 11:00 | NUR ---
SPOKE WITH PT'S FACILITY NURSE, CONFIRMED THAT PT ONLY TAKES 1.5 G KEPPRA AND NOT EXTENDED RELEASE KEPPRA.
--- NOTE | 2019-06-03 12:28 | NUR ---
DISCHARGE PLANNING: THIS IS A 54 Y/O FEMALE PATIENT FROM [facility], WHO CAME IN DUE TO GENERALIZED WEAKNESS. PAST MEDICAL HISTORY INCLUDE SEIZURES, THYROID DISEASE AND INTELLECTUAL DISABILITY. CURRENT LABS INCLUDE WBC 6.8, H/H 11.9/36.3, NA/K 151/4.1, BUN/CREA 18/0.7 AND ALBUMIN 2.5. CURRENT MEDS INCLUDE VANCOMYCIN AND ZOSYN. ID AND CARDIO CONSULTS IN PLACE. DC PLAN PENDING ON PATIENT'S RESPONSE TO TREATMENT. Addendum: 06/07/19 at 1351 by Jenifer Murphy CM STILL IN ICU. ON ROOM AIR SAT 97%. CURRENT LABS INCLUDE WBC 4.7, H/H 10.8/31.2, NA/K 146/3.7, BUN/CREA 13/0.6. ON ROCEPHIN. NEURO, ID, CARDIO, GI AND PULMO CONSULTS IN PLACE. DC PLAN PENDING ON PATIENT'S RESPONSE TO TREATMENT. Addendum: 06/07/19 at 1429 by Jenifer Murphy CM CONTACTED PRIMARY RN TO GET AN UPDATE WITH DC PLAN. SHE STATED THAT THE PLAN IS TO PLACE A G TUBE PENDING CONSENT. SHE ALSO STATED THAT THEY HAD TRIED TO CONTACT [facility] HOWEVER THERE WAS NO ANSWER AND THEY LEFT MESSAGES. CONTACTED [facility] AT [phone], ABLE TO SPEAK TO YOLANDA HILL. SHE PROVIDED ME WITH FOUR NUMBERS TO CALL: YOLANDA MERRITT (SMALL KICK PRESS OPERATOR) [phone], ZKEE (SUPERVISOR NUT PROCESSING) [phone], SHANTANU BECKMAN [phone] AND LOLLY THOMASON [phone]. CONTACTED ZEKE SUPERVISOR NUT PROCESSING, SHE STATED MEDICAL DECISION MAKER FOR THIS PATIENT IS TISHA CHANG [facility] [phone]. HOWEVER, SHE ALSO TOLD ME TO CALL YOLANDA (SMALL KICK PRESS OPERATOR) AND MAYBE SHE CAN HELP US WITH THE CONSENT. CONTACTED YOLANDA, SHE STATED SHE CANNOT SIGN FOR CONSENT ON THIS PATIENT AND CONSENT SHOULD COME FROM [facility] TISHA CHANG OR TWO DOCTORS CAN SIGN THE CONSENT IF IT IS EMERGENT. SHE STATED I WILL HAVE A HARD TIME CONTACTING [facility] SINCE THEY ARE CLOSED TODAY DUE TO THE HOLIDAY. PRIMARY RN ARA MADE AWARE. Addendum: 06/08/19 at 0840 by Jenifer Murphy CM CONTACTED LYLA CHANG ([facility]) AT [phone], NO ANSWER. LEFT MESSAGE. Addendum: 06/08/19 at 917 by Jenifer Murphy CM CURRENT LABS INCLUDE WBC 4.5, H/H 10.0/28.7, NA/K 143/3.6, BUN/CREA 13/0.5. ON ROCEPHIN. ON ROOM AIR. STILL PENDING CONSENT FOR PEG PLACEMENT. Addendum: 06/08/19 at 921 by Jenifer Murphy CM CONTACTED LYLA CHANG AGAIN, NO ANSWER. LEFT MESSAGE. WILL FOLLOW UP. Addendum: 06/09/19 at 1559 by Jenifer Murphy CM LATE ENTRY FROM YESTERDAY: PER PRIMARY RK VELASQUEZ, THEY ARE ABLE TO GET A HOLD OF LYLA FROM [facility] AND SENT THE FORM TO THEM. HE ALSO STATED THAT [facility] WILL FAX OVER THE SIGNED CONSENT. Addendum: 06/10/19 at 1624 by Jenifer Murphy CM LATE ENTRY: PER RK FOURNIER AT [facility] THEY ARE ABLE TO TAKE CARE OF PATIENTS WITH G TUBE. 1618: RECEIVED AN ORDER FOR SNF PLACEMENT FOR IV ANTIBIOTIC FOR [address]. [address] MCDANIEL TO CLARIFY ANTIBIOTIC, HE STATED PATIENT WILL NEED 5 MORE DAYS OF IV ROCEPHIN 1 GM Q 24H. CONTACTED [facility] TO GO AHEAD AND FAX OVER REFERRAL. Addendum: 06/10/19 at 1640 by Jenifer Murphy CM INQUIRY SENT TO [facility]. Addendum: 06/10/19 at 1647 by Jenifer Murphy CM LATE ENTRY: PER DR PEARL KAHN TO DC PATIENT. Addendum: 06/10/19 at 1649 by Jenifer Murphy CM INQUIRY SENT TO [place]. WILL FOLLOW UP. Addendum: 06/11/19 at 1414 by Sherrie Blanton CM DC PLANNING: FAXED TO [address] [facility] [place] [facility] TO FOLLOW Addendum: 06/11/19 at 1543 by Sherrie Blanton CM DC PLANNING: [facility]OM[facility] PT CAN GO TO ROOM # TO GIVE REPORT [phone] ARRANGED TRANSPORT WITH [facility] IMMUNOCHEMIST TIME BETWEEN 6:30-7PM PER ANKUSH PH[facility] TO [facility] Addendum: 06/11/19 at 1624 by Sherrie Blanton CM DC PLANNING PT IS GOING TO ROOM [facility] AT [facility] NOTIFIED COLE BECKMAN
[2019-06-03] MEDS ORDERED: KEP500 PO (12:32)
[2019-06-03] MEDS ORDERED: MIDODRINE 5 MG TAB PO SCH ×3 (13:00→21:00)
[2019-06-03] MEDS: ALBUTEROL SULFATE/IPRATROPIU 3 ML SOL IH SCH ×3 (13:50→19:03)
--- NOTE | 2019-06-03 14:48 | NUR ---
*S.T. BEDSIDE SWALLOW EVAL COMPLETED* See report for details. Pt presents w/ moderate-severe oral and moderate pharyngeal phase dysphagia c/b open mouth posture, poor labial seal, L facial droop with difficulty procuring, forming and A-P propulsion of oral boluses with labial spillage on L side and diffuse oral residue post swallow all textures. Pt unable to sip through straw, despite several attempts. Liquids were spooned or pipetted into oral cavity. Moderate delay in pharyngeal swallow initition.Pt is at high risk for aspiration. Recommend: 1) Continue pureed diet, downgrade liquid texture to nectar thick liquids only, via spoon or pipetted with straw or syringe. 2) P.O. meds crushed and mixed w/ applesauce. 3) 1:1 feeder w/ aspiration precautions. 4) S.T. to follow 1x/1wk for swallow tx. D/w pt results/recommendations. Endorsed to RK Beal. Time 4500-9481
[2019-06-03] MEDS: VANCOMYCIN 1,000 MG in DEXTROSE 5% 250 ML IV SCH (17:30)
--- NOTE | 2019-06-03 17:50 | NUR ---
PT IS SLEEPING, TRIED STERNUM RUB, PT WITHDREW FROM PAIN BUT STILL NOT FULLY AWAKE. BACLOFEN NOT GIVEN DUE TO ASPIRATION RISK. WILL CALL DR MCDANIEL.
--- NOTE | 2019-06-03 18:02 | NUR ---
SPOKE WITH DR JONAS Pereira OVER THE PHONE. MADE HIM AWARE PT IS SINUS MILENA IN 40S. TRIED TO WAKE PT UP BY STERNAL RUB, PT WITHDREW FROM PAIN BUT NOT FULLY AWAKE. PT ON SEIZURES MEDICATIONS AND LEVOPHED AT 4MCG/MIN. DR MCDANIEL ORDER DOPAMINE DRIP AND WANTS TO TITRATE DOWN LEVOPHED.
[2019-06-03] MEDS: DOPamine 400 MG/D5W PREMIX 250 ML IV PRN (18:22)
--- NOTE | 2019-06-03 19:00 | NUR ---
DR KANG CAME AND ASSESSED PT. MADE HIM AWARE PT HAS POOR ORAL INTAKE. DR KANG WANTS PEG TUBE CONSENT, AND WAITS TO SEE IF PT NEEDS PEG TUBE.
--- NOTE | 2019-06-03 19:30 | NUR ---
RECEIVED PT FROM RON BECKMAN. PT IS LETHARGIC. WITHDRAWS TO PAIN. PT ON DOPAMINE 5MCG/KG/MIN. DRY WEIGHT 77.7KG. D5 1/2 NS INFUSING AT 70 ML/HR. BILAT PUPPILS 3MM, BRISK. IV SITE L FEMORAL CENTRAL LINE. ON NC 2L/MIN. LUNG SOUNDS CRACKLES. PT HAS SCALES CATHETER IN PLACE. PT R ARM CONTRACTED. SKIN INTACT, WARM AND DRY. FLACC 0. HOB 30 DEGREES. BED LOCKED IN LOWEST POSITION. WILL CONTINUE TO MONITOR. Addendum: 06/03/19 at 2231 by Marcos Foster RN NON PITTING EDEMA NOTED ON BILAT LOWER LEGS.
[2019-06-03] MEDS ORDERED: Z-GUARD PASTE TP SCH (20:00)
--- NOTE | 2019-06-03 20:00 | NUR ---
PT TRANSFERRED TO CT SCAN. NO DISTRESS NOTED. VITAL SIGNS STABLE.
--- NOTE | 2019-06-03 20:40 | NUR ---
PT TRANSFERRED BACK FROM CT SCAN TO ICU-1. NO DISTRESS NOTED. VITAL SIGNS STABLE.
[2019-06-03] MEDS ORDERED: MAGNESIUM HYDROXIDE 2400 MG/30 ML UDC PO SCH (21:00)
--- NOTE | 2019-06-03 21:00 | NUR ---
PT AWAKE, NON VERBAL. ALERT AND ORIENTED X0. WITH DRAWS TO LIGHT PAIN. WILL CONTINUE TO MONITOR.
[2019-06-03] MEDS: levETIRAcetam 500 MG TAB PO SCH (21:11)
--- NOTE | 2019-06-03 21:30 | NUR ---
PT HAD 60% OF DINNER EATEN.
--- NOTE | 2019-06-03 23:15 | NUR ---
PT HAS EYES CLOSED, RESTING IN BED. RESPIRATIONS EVEN AND UNLABORED. CHEST RISE IS SYMMETRICAL. HOB 30 DEGREES, BED LOCKED IN LOWEST POSITION. WILL CONTINUE TO MONITOR.
[2019-06-04] VITALS (76 sets, daily range): BP systolic 89–141; BP diastolic 32–73
--- NOTE | 2019-06-04 | NUR ---
SMALL FORMED BM. ROSA CARE PROVIDED. REPOSITIONED WITH PRESSURE AREAS OFFLOADED. FLACC 0. ALL NEEDS BEING MET. SAFETY PRECAUTIONS REMAIN IN PLACE. BED LOW AND LOCKED. WILL CONTINUE TO MONITOR.
[2019-06-04] MEDS: PIPERACILLIN/TAZOBACTAM 3.375 GM in DEXTROSE 5% 50 ML IV SCH ×4 (00:02→23:42)
--- NOTE | 2019-06-04 00:12 | NUR ---
ANIKET CHARLES. WILL CONTINUE TO MONITOR.
[2019-06-04] MEDS: ALBUTEROL SULFATE/IPRATROPIU 3 ML SOL IH SCH ×4 (00:35→19:30)
--- NOTE | 2019-06-04 02:00 | NUR ---
SMALL FORMED BM. ROSA-CARE PROVIDED. REPOSITIONED WITH PRESSURE AREAS OFFLOADED. ALL OTHER NEEDS BEING MET. SAFETY PRECAUTIONS IN PLACE. BED LOW AND LOCKED WITH HOB AT 30 DEGREES. WILL CONT TO MONITOR. Addendum: 06/05/19 at 0931 by Edda Hernandez RN ERROR IN TIME/DATE
--- NOTE | 2019-06-04 02:30 | NUR ---
PT HAS EYES, RESTING IN BED. ON DOPAMINE DRIP, 5MCG/KG/MIN. RESPIRATIONS EVEN AND UNLABORED. CHEST RISE IS SYMMETRICAL. SAFETY PRECAUTIONS IN PLACE. WILL CONTINUE TO MONITOR. Addendum: 06/04/19 at 0304 by Marcos Foster RN PT HAS EYES CLOSED
[2019-06-04 04:06] LABS: CREATINE KINASE MB 1.2 ng/mL (0-3.6)
[2019-06-04] MEDS: Z-GUARD PASTE TP SCH ×2 (04:10→13:00)
[2019-06-04] MEDS: VANCOMYCIN 1,000 MG in DEXTROSE 5% 250 ML IV SCH ×2 (04:10→16:00)
--- NOTE | 2019-06-04 04:15 | NUR ---
ROSA CARE, SCALES CARE, AND SPONGE BATH PROVIDED. PT TOLERATED WELL. HOB 30 DEGREES, BED LOCKED IN LOWEST POSITION. WILL CONTINUE TO MONITOR.
--- NOTE | 2019-06-04 04:20 | NUR ---
PT HAS EYES CLOSED, RESTING IN BED. SINUS BRADYCARDIA ON MONITOR. RESPIRATIONS EVEN AND UNLABORED. CHEST RISE IS SYMMETRICAL. WILL CONTINUE TO MONITOR.
[2019-06-04] MEDS: LEVOTHYROXINE 0.1 MG TAB PO SCH (05:50)
[2019-06-04 06:24] LABS: BASOPHILS % (AUTO) 0.5 % (0.0-2.0); EOSINOPHILS # (AUTO) 0.2 K/uL (0-0.4); EOSINOPHILS % (AUTO) 2.7 % (0.0-4.0); HEMATOCRIT 35.5 % (36-48); HEMOGLOBIN 11.6 g/dL (12.0-16.0); LYMPHOCYTES # (AUTO) 1.4 K/uL (2.5-16.5); LYMPHOCYTES % (AUTO) 24.7 % (20.5-51.1); MEAN CORPUSCULAR HEMOGLOBIN 31 pg (27-31); MEAN CORPUSCULAR HGB CONC 33 g/dL (33-37); MEAN CORPUSCULAR VOLUME 93.2 fL (80-94); MONOCYTES # (AUTO) 0.4 K/uL (0.8-1.0); MONOCYTES % (AUTO) 7.7 % (1.7-9.3); NEUTROPHILS # (AUTO) 3.6 K/uL (1.8-7.7); NEUTROPHILS % (AUTO) 64.4 % (42.2-75.2); PLATELET COUNT (AUTO) 120 K/uL (140-450); RED BLOOD CELL COUNT(AUTO) 3.81 MIL/uL (4.20-5.40); RED CELL DISTRIBUTION WIDTH 13.8 % (11.6-13.7); WHITE BLOOD COUNT (AUTO) 5.6 K/uL (4.8-10.8)
--- NOTE | 2019-06-04 06:30 | NUR ---
LEVOTHYROXINE MED GIVEN PO IN APPLESAUCE. WILL CONTINUE TO MONITOR.
[2019-06-04 07:12] LABS: ALBUMIN 2.6 g/dL (3.4-5.0); ANION GAP 13.2 (8-16); CARBON DIOXIDE 22.6 mmol/L (21-32); CREATININE 0.8 mg/dL (0.6-1.3); POTASSIUM 3.8 mmol/L (3.5-5.1); TOTAL BILIRUBIN 0.2 mg/dL (0.0-1.0)
--- NOTE | 2019-06-04 07:19 | NUR ---
REPORT GIVEN TO AM SHIFT RN FOR CONTINUITY OF CARE.
--- NOTE | 2019-06-04 07:22 | NUR ---
BEDSIDE REPORT RECEIVED FROM CARDIAC CATH LAB TECHNOLOGIST NURSE, PT RESTING WITH EYES CLOSED, SPONTANEOUS EYE OPENING, NON VERBAL, HX MR, VITALS STABLE ON MONITOR, HR 45, SB, RR 15, BP 112/58, O2SAT 98%, RESP EVEN UNLABORED ON 2L NC, RESP EVEN UNLABORED, BS COARSE UPPER AIRWAY, CLEAR AT BASES, LEFT FEMORAL LINE IN PLACE, DOPAMINE INFUSING AT 5MCG/KG/HR (14.56ML/HR) DRY WT 77.7KG, D51/2NS AT 70ML/HR, SITE WNL, ABD SOFT ROUND NON DISTENDED, +[id number], SCALES IN PLACE, DRAINING TO GRAVITY, BILAT LOWER AND UPPER EXT WITH NON PITTING EDEMA, ALL SAFETY MEASURES IN PACE, SZ PRECAUTION IN PLACE, POC REVIEWED, NO IMMEDIATE NEEDS AT THIS TIME, WILL CONTINUE TO MONITOR.
[2019-06-04] MEDS: clonazePAM 0.5 MG TAB PO SCH ×2 (09:00→20:20)
[2019-06-04] MEDS: LACTULOSE 20 GM/30 ML UDC PO SCH (09:00)
[2019-06-04] MEDS: VIT-B COMP/VIT-C/FOLIC ACID 1 TAB PO SCH ×2 (09:00→09:06)
[2019-06-04] MEDS: CHOLECALCIFEROL 1,000 IU TAB PO SCH ×2 (09:00→09:06)
[2019-06-04] MEDS: levETIRAcetam 500 MG TAB PO SCH ×3 (09:00→20:18)
[2019-06-04] MEDS: CLOBAZAM 20 MG PO SCH ×2 (09:00→20:21)
[2019-06-04] MEDS: TOPIRAMATE 100 MG TAB PO SCH ×3 (09:00→20:18)
[2019-06-04] MEDS: FUROSEMIDE 20 MG TAB PO SCH ×2 (09:00→09:05)
[2019-06-04] MEDS: POLYETHYLENE GLYCOL 17 GM/PKT PO SCH (09:00)
[2019-06-04] MEDS: MIDODRINE 5 MG TAB PO SCH ×4 (09:00→18:08)
[2019-06-04] MEDS: BACLOFEN 10 MG TAB PO SCH ×3 (09:05→18:08)
[2019-06-04] MEDS: ATORVASTATIN 20 MG TAB PO SCH (09:06)
--- NOTE | 2019-06-04 09:08 | NUR ---
PT VERY SLEEPY, OPENS EYES BUT FALLS BACK SLEEP IMMEDIATELY, UNABLE TO TAKE ANY PO MEDS, WILL NOTIFY .
--- NOTE | 2019-06-04 09:24 | NUR ---
SCREEN FOR LOW MELISSA SCALE AT RISK, CONTINUE TO FOLLOW PRESSURE ULCER PREVENTION INTERVENTIONS. -TURN AND REPOSITION PATIENT Q 2H -ASSESS AND MONITOR SKIN CONDITION DURING POSITION CHANGE -OFFLOAD BILATERAL HEELS BY PLACING PILLOWS UNDER CALVES AT ALL TIMES, UNLESS OTHERWISE CONTRAINDICATED -PRESSURE REDISTRIBUTION BY PLACING PILLOWS AND OFFLOADING SACRALCOCCYX -KEEP SKIN CLEAN AND DRY AT ALL TIMES.
--- NOTE | 2019-06-04 09:25 | NUR ---
DR Floyd MCDANIEL AT BEDSIDE FOR EVAL, NOTIFIED OF BRADYCARDIA IN 40'S INTERMITTENTLY, BLCX+, PT NOT AWAKE ENOUGH FOR PO INTAKE, AND UNABLE TO CONTACT [facility] OR [facility] YET FOR CONSENT TO EGE/PEG.
--- NOTE | 2019-06-04 09:34 | NUR ---
FOR PEG/EGD CONSENT, ATTEMPTED TO CONTACT [facility], LEFT MESSAGE ON VOICEMAIL FABIODaja MCCAULEY [phone], VOICEMAIL FULL UNABLE TO LEAVE MESSAGE WITH LOLLY PEREZ [phone], ALSO LEFT MESSAGE AT [facility] [phone].
[2019-06-04] MEDS ORDERED: PROBIOTIC SCREEN 1 EA MISC MC PRN (10:00)
[2019-06-04] MEDS: DEXT 5% / NACL 0.45% 1,000 ML IV SCH ×2 (10:14→23:45)
--- NOTE | 2019-06-04 10:33 | NUR ---
*S.T. Treatment note* S: Pt seen at bedside w/o family/caregiver present. Per RN Annalise, pt unable to take P.O. Oral boluses remain in oral cavity, unmanipulated. Awaiting consent for EGD/PEG placement. Pt laughing throughout treatment. D/w nsg possibility of new neurological incident that has caused worsened facial droop/labial seal and oropharyngeal dysphagia. O: Pt given total of 7 boluses of puree and nectar thick liquids by spoon. Absent swallow response except for one time w/ puree. All subsequent boluses were not swallowed. A: Pt demonstrates severe-profound oropharyngeal dysphagia at this time and is at high risk for aspiration. Recommend NPO with non-oral means of nutrition, hydration and meds. Also recommend consideration for further eval/imaging to determine if pt possibly suffered an acute neurological incident resulting in this oropharyngeal dysphagia. P: Continue POC 1x/1wk if pt remains inpatient by 06/07/19. Time [id number]
--- NOTE | 2019-06-04 10:36 | NUR ---
SPEECH THERAPIST AT BEDSIDE, PT FAILED PO TRIAL
[2019-06-04] MEDS: DOPamine 400 MG/D5W PREMIX 250 ML IV PRN (10:48)
--- NOTE | 2019-06-04 11:45 | NUR ---
FOR PEG/EGD CONSENT CALLED [facility] [phone] LEFT MESSAGE ON VOICE MAIL CALLED LOLLY PEREZ [phone], VOICE MAIL FULL CAN'T LEAVE MESSAGE CALLED FABIO MCCAULEY [facility] [phone], LEFT MESSAGE ON VOICE MAIL..
--- NOTE | 2019-06-04 12:50 | NUR ---
Matthew BERNAL CALLED TO NOTIFY NPO RECOMMENDATION FROM SPEECH THERAPIST, ORDER FOR NGT AND TUBE FEEDING RECEIVED AND ALL ORAL MEDS VIA NGT.
[2019-06-04] MEDS: CALCIUM CARB/VIT-D 500 MG/200 IU 1 TAB PO SCH ×2 (13:00→18:08)
--- NOTE | 2019-06-04 14:25 | NUR ---
06/04/19 RD INITIAL ASSESSMENT COMPLETED PLEASE REFER TO NUTRITION ASSESSMENT UNDER CARE ACTIVITY FOR ESTIMATED NUTRITIONAL NEEDS. 1. RECOMMEND JEVITY 1.2 @ 70 ML/HR X 24 HRS VIA NG-TUBE. START AT 25 ML/HR AND INCREASE BY 25 ML/HR Q4H -THIS WILL PROVIDE 2016 KCAL AND 93 GM OF PROTEIN WHICH MEETS 100% OF ESTIMATED NUTRIENT NEEDS 2. RECOMMEND FREE WATER FLUSH OF [address] TO FOLLOW-UP 2-3 DAYS, HIGH RISK MAKAYLA ASH RD
--- NOTE | 2019-06-04 15:20 | NUR ---
NGT 14F PLACED IN RIGHT NARE, PT IVY WELL, GOOD AUSCULTATION, NO RETURN WITH ASPIRATION, CONFIRMATION CXR ORDERED.
--- NOTE | 2019-06-04 15:28 | NUR ---
[facility] PHONE NUMBER OBTAINED FROM . CALLED [phone], NO ANSWER, LEFT MESSAGE ON VOICE MAIL.
--- NOTE | 2019-06-04 16:05 | NUR ---
LEFT FEMORAL LINE DRESSING CHANGED PER PROTOCOL, PT CLEANED, BED BATH, GOWN, BEDDING CHANGED, PERICARE DONE.
--- NOTE | 2019-06-04 16:05 | NUR ---
VANCO 18.5, PHARMACY NOTIFIED, OK TO GIVE VANCO SCHEDULED.
--- NOTE | 2019-06-04 16:30 | NUR ---
RK FOURNIER FROM [facility] CALLED, STATES HER RACE CAR MECHANIC IS YUMIKO CHANG AT [facility] [phone], NO ANSWER, LEFT VOICE MAIL MESSAGE, ALSO LEFT MESSAGE WITH INSULATION APPLICATOR REGARDING NEED FOR CONSENT FOR PEG/EGD. RK FOURNIER IS WEB OPERATIONS SPECIALIST 24HRS [phone]
--- NOTE | 2019-06-04 16:55 | NUR ---
DR ST AT BEDSIDE, NOTIFIED OF BRADYCARDIA IN 40'S, AND DOPAMINE DRIP, OK TO LOWER ALARM LIMIT TO 40, NOTIFY MD IF HR BELOW [address]
--- NOTE | 2019-06-04 18:05 | NUR ---
PER XRAY REPORT NGT ADVANCED 5CM, GT FEED STARTED AT 25MML/HR JEVITY WITH FWF 110ML/4HR, PT RESTING QUIETLY, SMILING AND LAUGHING, APPEARS IN NO ACUTE DISTRESS, DOPAMIN STOPPED AT THIS TIME.
--- NOTE | 2019-06-04 19:30 | NUR ---
REPORT RECEIVED FROM DAYSCTFT NURSE FOR CONTINUITY OF CARE. PT RESTING WITH EYES CLOSED, SPONTANEOUS EYE OPENING, NON VERBAL EXCEPT FOR OCCASIONAL MOANING. HX MENTAL RETARDATION. PERRL, PUPILS 3MM. NGT TO RT NARES WITH NEPHRO RUNNING @ 25 ML/HR. + PLACEMENT VERIFIED WITH AIR BOLUS, ZERO RESIDUAL ASPIRATED. RESP EVEN UNLABORED ON RA. LUNGS CLEAR THROUGHOUT. LEFT FEMORAL LINE IN PLACE, INFUSING D5 1/2 NS AT 70ML/HR. ABD SOFT, NON DISTENDED, AND NON TENDER UPON PALPATION. +BS NOTED. SCALES IN PLACE, DRAINING CLEAR, YELLOW, URINE TO GRAVITY, BILAT LOWER EXTREMITIES WITH NON PITTING EDEMA. SAFETY MEASURES IN PLACE, SEIZURE PRECAUTIONS IN PLACE. WILL CONTINUE TO MONITOR.
--- NOTE | 2019-06-04 20:00 | NUR ---
REPOSITIONED. ORAL CARE PROVIDED. CATH CARE PROVIDED.BED LOW AND LOCKED. SAFETY PRECAUTIONS IN PLACE. WILL CONTINUE TO MONITOR.
--- NOTE | 2019-06-04 22:00 | NUR ---
REPOSITIONED WITH PRESSURE AREAS OFFLOADED. FLACC 0. SAFETY/SEIZURE PRECAUTIONS REMAIN IN PLACE. BED LOW AND LOCKED. WILL CONT TO MONITOR
[2019-06-05] VITALS (47 sets, daily range): BP systolic 72–128; BP diastolic 30–89
--- NOTE | 2019-06-05 | NUR ---
VSS. NO HYPOTENSION. FLACC O. PT RESTING IN BED, RESPONDS TO TACTILE STIMULI. ALL NEEDS BEING MET. BED LOW AND LOCKED WITH HB @ 30 DEGREES. ALL SAFETY PRECAUTIONS IN PLACE. WILL CONTINUE TO MONITOR.
[2019-06-05] MEDS: ALBUTEROL SULFATE/IPRATROPIU 3 ML SOL IH SCH ×4 (01:36→19:16)
[2019-06-05] MEDS: Z-GUARD PASTE TP SCH ×2 (01:54→13:00)
--- NOTE | 2019-06-05 02:00 | NUR ---
SMALL FORMED BM. ROSA-CARE PROVIDED. REPOSITIONED WITH PRESSURE AREAS OFFLOADED. ALL OTHER NEEDS BEING MET. SAFETY PRECAUTIONS IN PLACE. BED LOW AND LOCKED WITH HOB AT 30 DEGREES. WILL CONT TO MONITOR.
--- NOTE | 2019-06-05 04:00 | NUR ---
NADR NOTED. FLACC 0. SAFETY PRECAUTIONS IN PLACE. WILL CONTINUE TO MONITOR.
[2019-06-05 06:36] LABS: BASOPHILS % (AUTO) 0.3 % (0.0-2.0); EOSINOPHILS # (AUTO) 0.1 K/uL (0-0.4); EOSINOPHILS % (AUTO) 2.1 % (0.0-4.0); HEMATOCRIT 32.1 % (36-48); HEMOGLOBIN 10.4 g/dL (12.0-16.0); LYMPHOCYTES # (AUTO) 0.7 K/uL (2.5-16.5); MEAN CORPUSCULAR HEMOGLOBIN 30 pg (27-31); MEAN CORPUSCULAR HGB CONC 32 g/dL (33-37); MONOCYTES # (AUTO) 0.3 K/uL (0.8-1.0); MONOCYTES % (AUTO) 7.1 % (1.7-9.3); NEUTROPHILS # (AUTO) 3.1 K/uL (1.8-7.7); NEUTROPHILS % (AUTO) 73.5 % (42.2-75.2); PLATELET COUNT (AUTO) 93 K/uL (140-450); RED BLOOD CELL COUNT(AUTO) 3.46 MIL/uL (4.20-5.40); RED CELL DISTRIBUTION WIDTH 13.6 % (11.6-13.7); WHITE BLOOD COUNT (AUTO) 4.3 K/uL (4.8-10.8)
[2019-06-05 07:01] LABS: ALBUMIN 2.5 g/dL (3.4-5.0); ANION GAP 11.5 (8-16); CARBON DIOXIDE 21.9 mmol/L (21-32); CREATININE 0.5 mg/dL (0.6-1.3); POTASSIUM 3.4 mmol/L (3.5-5.1); TOTAL BILIRUBIN 0.2 mg/dL (0.0-1.0)
[2019-06-05 07:07] LABS: HEPATITIS A ANTIBODY IGM Negative (Negative); HEPATITIS B SURFACE ANTIBODY Reactive (.); HEPATITIS B SURFACE ANTIGEN Negative (Negative)
--- NOTE | 2019-06-05 07:15 | NUR ---
REPORT GIVEN TO DAYSHIFT RN FOR CONTINUITY OF CARE. VSS.
--- NOTE | 2019-06-05 07:30 | NUR ---
PT RESTING IN BED, EYES CLOSED, NON VERBAL EXCEPT FOR OCCASIONAL MOANING. HX MENTAL RETARDATION. PERRL, PUPILS 3MM. BEDSIDE MONITOR SHOWS SR 60S. ON RA. O2 SATS 97%. NGT TO RT NARES WITH JEVITY 1.2 RUNNING @ 25 ML/HR. + PLACEMENT VERIFIED . RESIDUAL 20 CC ASPIRATED AND RETURNED IT BACK. LUNGS CLEAR THROUGHOUT. LEFT FEMORAL LINE IN PLACE, INFUSING D5 1/2 NS AT 70ML/HR. ABD SOFT, NON DISTENDED, AND NON TENDER UPON PALPATION. SCALES IN PLACE, DRAINING CLEAR, YELLOW, URINE TO GRAVITY, NO FEVER. SAFETY MEASURES IN PLACE, SEIZURE PRECAUTIONS IN PLACE. WILL CONTINUE TO MONITOR.
[2019-06-05] MEDS: VANCOMYCIN 1,000 MG in DEXTROSE 5% 250 ML IV SCH ×2 (08:37→16:38)
[2019-06-05] MEDS: LEVOTHYROXINE 0.1 MG TAB PO SCH (08:37)
[2019-06-05] MEDS: CHOLECALCIFEROL 1,000 IU TAB PO SCH (09:07)
[2019-06-05] MEDS: FUROSEMIDE 20 MG TAB PO SCH (09:08)
[2019-06-05] MEDS: levETIRAcetam 500 MG TAB PO SCH ×2 (09:08→20:39)
[2019-06-05] MEDS: CALCIUM CARB/VIT-D 500 MG/200 IU 1 TAB PO SCH ×3 (09:09→16:38)
[2019-06-05] MEDS: TOPIRAMATE 100 MG TAB PO SCH ×2 (09:09→20:39)
[2019-06-05] MEDS: clonazePAM 0.5 MG TAB PO SCH ×2 (09:11→20:38)
[2019-06-05] MEDS: LACTULOSE 20 GM/30 ML UDC PO SCH (09:12)
[2019-06-05] MEDS: VIT-B COMP/VIT-C/FOLIC ACID 1 TAB PO SCH (09:12)
[2019-06-05] MEDS: MIDODRINE 5 MG TAB PO SCH ×3 (09:12→16:38)
[2019-06-05] MEDS: BACLOFEN 10 MG TAB PO SCH ×3 (09:13→16:38)
[2019-06-05] MEDS: ATORVASTATIN 20 MG TAB PO SCH (09:13)
[2019-06-05] MEDS: PIPERACILLIN/TAZOBACTAM 3.375 GM in DEXTROSE 5% 50 ML IV SCH ×2 (09:14→15:56)
[2019-06-05] MEDS ORDERED: POTASSIUM CHLORIDE 20% 40 MEQ/15 ML UDC GT SCH (09:20)
[2019-06-05] MEDS: CLOBAZAM 20 MG PO SCH ×2 (11:12→20:39)
[2019-06-05] MEDS: POLYETHYLENE GLYCOL 17 GM/PKT PO SCH (11:13)
[2019-06-05] MEDS: LACTOBACILLUS RHAMNOSUS GG 1 EACH CAP PO SCH (11:14)
--- NOTE | 2019-06-05 12:00 | NUR ---
RECHECKED RESIDUAL 50 CC, INCREASED TUBE FEEDING RATE TO 50 CC/HR.
[2019-06-05] MEDS: DEXT 5% / NACL 0.45% 1,000 ML IV SCH (12:12)
[2019-06-05] MEDS: DOPamine 400 MG/D5W PREMIX 250 ML IV PRN (13:11)
--- NOTE | 2019-06-05 13:11 | NUR ---
PT BP DROPS, RESTARTED DOPAMINE DRIP.
--- NOTE | 2019-06-05 16:45 | NUR ---
RECHECKED RESIDUAL ZERO. DUE MEDS GIVEN. PT TOLERATED WELL. TURNED AND REPOSITIONED PT.
--- NOTE | 2019-06-05 19:20 | NUR ---
RECEIVED PT FROM AM SHIFT. PT IN NO APPARENT RESPIRATORY DISTRESS AT THIS TIME; HR 63, RR 19, SPO2 98% ON ROOM AIR, AND A CLEAR BREATH SOUNDS ON UPPER LOWERS AND COARSE BREATH SOUNDS ON THE LOWER BASES. HHN TX GIVEN ORDERED WITH NO ADVERSE REACTION. BVM AT BEDSIDE AND HOB > 30. WILL CONTINUE TO MONITOR PT.
--- NOTE | 2019-06-05 19:20 | NUR ---
REPORT RECEIVED FROM DAYSHIFT NURSE FOR CONTINUITY OF CARE. PT RESTING WITH EYES CLOSED, SPONTANEOUS EYE OPENING, NON VERBAL EXCEPT FOR OCCASIONAL MOANING. HX MENTAL RETARDATION. PERRL, PUPILS 3MM. NGT TO RT NARES WITH JEVITY RUNNING @ 50 ML/HR. + PLACEMENT VERIFIED WITH AIR BOLUS, ZERO RESIDUAL ASPIRATED. RESP EVEN UNLABORED ON RA. LUNGS CLEAR THROUGHOUT. LEFT FEMORAL LINE IN PLACE, INFUSING DOPAMINE 5MCG/KG/MIN D5 1/2 NS AT 70ML/HR. ABD SOFT, NON DISTENDED, AND NON TENDER UPON PALPATION. +BS NOTED. SCALES IN PLACE, DRAINING CLEAR, YELLOW, URINE TO GRAVITY, BILAT LOWER EXTREMITIES WITH NON PITTING EDEMA. SAFETY MEASURES IN PLACE, SEIZURE PRECAUTIONS IN PLACE. WILL CONTINUE TO MONITOR.
--- NOTE | 2019-06-05 19:35 | NUR ---
REPORT RECEIVED FROM DAYSHIFT NURSE FOR CONTINUITY OF CARE. PT RESTING WITH EYES CLOSED, SPONTANEOUS EYE OPENING, NON VERBAL EXCEPT FOR OCCASIONAL MOANING. HX MENTAL RETARDATION. PERRL, PUPILS 3MM. NGT TO RT NARES WITH JEVITY RUNNING @ 50 ML/HR. + PLACEMENT VERIFIED WITH AIR BOLUS, ZERO RESIDUAL ASPIRATED. RESP EVEN UNLABORED ON RA. LUNGS CLEAR THROUGHOUT. LEFT FEMORAL LINE IN PLACE, INFUSING DOPAMINE 5MCG/KG/MIN, D5 1/2 NS AT 70ML/HR. DRY WEIGHT 79KG. ABD SOFT, NON DISTENDED, AND NON TENDER UPON PALPATION. +BS NOTED. SCALES IN PLACE, DRAINING CLEAR, YELLOW, URINE TO GRAVITY, BILAT LOWER EXTREMITIES WITH NON PITTING EDEMA. SAFETY MEASURES IN PLACE, SEIZURE PRECAUTIONS IN PLACE. WILL CONTINUE TO MONITOR.
--- NOTE | 2019-06-05 20:00 | NUR ---
DR LANE AT BEDSIDE AT THIS TIME. UPDATED ON PT STATUS.
[2019-06-05] MEDS ORDERED: cefTRIAXone 1,000 MG VIAL ONE (20:45)
--- NOTE | 2019-06-05 22:00 | NUR ---
REPOSITIONED WITH PRESSURE AREAS OFFLOADED. CATHETER CARE PROVIDED. FLACC 0. VSS. SAFETY PRECAUTIONS REMAIN IN PLACE. BED LOW AND LOCKED. WILL CONT TO MONITOR.
[2019-06-05] MEDS ORDERED: POTASSIUM CHLORIDE 20% 40 MEQ/15 ML UDC ONE (22:52)
[2019-06-05] MEDS ORDERED: POTASSIUM CHLORIDE 20% 40 MEQ/15 ML UDC NG SCH (23:30)
[2019-06-06] VITALS (96 sets, daily range): BP systolic 77–121; BP diastolic 36–78
--- NOTE | 2019-06-06 | NUR ---
ORAL CARE PROVIDED. REPOSITIONED. FLACC 0. NO ADR NOTED. BED LOW AND LOCKED WITH HOB @ 30 DEGREES. WILL CONT TO MONITOR.
[2019-06-06] MEDS: Z-GUARD PASTE TP SCH ×2 (01:00→13:00)
[2019-06-06] MEDS: ALBUTEROL SULFATE/IPRATROPIU 3 ML SOL IH SCH ×4 (01:39→19:48)
--- NOTE | 2019-06-06 02:00 | NUR ---
PT CONTINUES ON DOPAMINE DRIP TO MAINTAIN BP. ORAL CARE PROVIDED. REPOSITIONED. BED LOW AND LOCKED WITH HOB AT 30 DEGREES. ZERO RESIDUAL AT THIS TIME. CONTINUES ON TUBE FEEDING TOLERATED, PER MD ORDERS. ALL OTHER NEEDS BEING MET. WILL CONTINUE TO MONITOR FOR CHANGES.
--- NOTE | 2019-06-06 04:00 | NUR ---
HAND OFF REPORT GIVEN TO DINORA BECKMAN AT THIS TIME FOR CONTINUITY OF CARE.
--- NOTE | 2019-06-06 04:05 | NUR ---
CHANGE OF SHIFT REPORT GIVEN AT BEDSIDE BY NIGHT NURSE CINDY. PATIENT NGT IN RIGHT NARES. IN PLACE AT THIS TIME WITH FEEDING OF JEVITY 1.2. AT RATE OF 60. WITH WATER FLUSH OF 110ML Q4H. STATES JUST CHANGED TO RATE OF 60. DOPAMINE DRIP AT 2.999 MCG/KG/MIN AT THIS TIME. PATIENT OPENS EYES SPONTANEOUSLY. GIGGLES WHEN NURSE AT BEDSIDE. PATIENT MUMBLES AND GIGGLES BUT DOES NOT SPEAK. CINDY STATES HX OF MENTAL RETARDATION. SCALES CATHETER IN PLACE. BOWEL SOUNDS ACTIVE IN ALL 4 QUAD. RESPIRATIONS SYMMETRICAL AND UNLABORED. HR REGULAR. RHONCHI HEARD BILATERALLY. SWELLING IN BOTH LOWER EXTREMITIES. NO PITTING NOTED. COLOR OF SKIN WNL. 97.7. ABLE TO MOVE ALL EXTREMITIES. CONTRACTURES TO BUE BUT ABLE TO MOVE. BED IN LOWEST POSITION. IVF RUNNING D5 1/2 NS AT 70ML/HR. LEFT FEMORAL TRIPLE LUMEN. SCDS IN PLACE. WILL CONTINUE TO MONITOR. 97.7.
[2019-06-06] MEDS: DEXT 5% / NACL 0.45% 1,000 ML IV SCH ×2 (04:25→19:39)
--- NOTE | 2019-06-06 05:30 | NUR ---
MORNING CARE PROVIDED, ORAL CARE, CHAP STICK APPLIED TO DRY LIPS, CATHETER CARE, SKIN CARE, BED CHANGED, SMALL BM NOTED SIZE OF GOLF BALL SOFT AND BROWN, URINE OUTPUT YELLOW AND 440CC NOTED SINCE 0400. CLEANED PATIENT. TOLERATED WELL. GIGGLED WITH STAFF. CHANGED POSITION. WILL CONTINUE TO MONITOR AT THIS TIME. NO DISTRESS NOTED. CHARGE NURSE AND NURSE BOTH CHECKED NGT PLACEMENT AFTER REPOSITIONING PATIENT. 1O CC OF GASTRIC FLUIDS TAKEN OUT AND REPLACED BY CHARGE NURSE. NOTIFIED IN PLACE PROPERLY.
[2019-06-06] MEDS: LEVOTHYROXINE 0.1 MG TAB PO SCH (06:09)
[2019-06-06 06:24] LABS: BASOPHILS % (AUTO) 0.7 % (0.0-2.0); EOSINOPHILS # (AUTO) 0.2 K/uL (0-0.4); EOSINOPHILS % (AUTO) 4.2 % (0.0-4.0); HEMATOCRIT 32.2 % (36-48); LYMPHOCYTES # (AUTO) 1.2 K/uL (2.5-16.5); MEAN CORPUSCULAR HEMOGLOBIN 30 pg (27-31); MEAN CORPUSCULAR HGB CONC 34 g/dL (33-37); MEAN CORPUSCULAR VOLUME 88.8 fL (80-94); MONOCYTES # (AUTO) 0.4 K/uL (0.8-1.0); MONOCYTES % (AUTO) 8.3 % (1.7-9.3); NEUTROPHILS # (AUTO) 2.8 K/uL (1.8-7.7); NEUTROPHILS % (AUTO) 60.8 % (42.2-75.2); PLATELET COUNT (AUTO) 108 K/uL (140-450); RED BLOOD CELL COUNT(AUTO) 3.63 MIL/uL (4.20-5.40); RED CELL DISTRIBUTION WIDTH 13.6 % (11.6-13.7); WHITE BLOOD COUNT (AUTO) 4.6 K/uL (4.8-10.8)
--- NOTE | 2019-06-06 06:30 | NUR ---
MEDICATION ADMINISTERED PER MD ORDERS. TOLERATED WELL. WILL CONTINUE TO MONITOR. NGT PLACEMENT CHECKED AND IN PROPER PLACE AT THIS TIME.
[2019-06-06 06:42] LABS: ANION GAP 11.9 (8-16); CARBON DIOXIDE 22.3 mmol/L (21-32); CREATININE 0.5 mg/dL (0.6-1.3); POTASSIUM 4.2 mmol/L (3.5-5.1)
--- NOTE | 2019-06-06 07:30 | NUR ---
PT RESTING IN BED, EYES CLOSED, NON VERBAL EXCEPT FOR OCCASIONAL MOANING. HX MENTAL RETARDATION. PERRL, PUPILS 3MM. BEDSIDE MONITOR SHOWS SR 80S. ON RA. O2 SATS 97%. NGT TO RT NARES WITH JEVITY 1.2 RUNNING @ 60 ML/HR. + PLACEMENT VERIFIED . RESIDUAL 10 CC ASPIRATED AND RETURNED IT BACK. LUNGS CLEAR THROUGHOUT. LEFT FEMORAL LINE IN PLACE, INFUSING D5 1/2 NS AT 70ML/HR AND LEVOPHED AT 3.99 MCG/KG/MIN =11.81 CC/HR BASED ON DRY WEIGHT 79 KG. ABD SOFT, NON DISTENDED, AND NON TENDER UPON PALPATION. SCALES IN PLACE, DRAINING CLEAR, YELLOW, URINE TO GRAVITY, NO FEVER. SKIN INTACT. SAFETY MEASURES IN PLACE, SEIZURE PRECAUTIONS IN PLACE. WILL CONTINUE TO MONITOR.
[2019-06-06] MEDS: LACTULOSE 20 GM/30 ML UDC PO SCH (08:50)
[2019-06-06] MEDS: LACTOBACILLUS RHAMNOSUS GG 1 EACH CAP PO SCH (08:51)
[2019-06-06] MEDS: levETIRAcetam 500 MG TAB PO SCH ×2 (08:51→20:56)
[2019-06-06] MEDS: POLYETHYLENE GLYCOL 17 GM/PKT PO SCH (08:51)
[2019-06-06] MEDS: ATORVASTATIN 20 MG TAB PO SCH (08:52)
[2019-06-06] MEDS: VIT-B COMP/VIT-C/FOLIC ACID 1 TAB PO SCH (08:52)
[2019-06-06] MEDS: CALCIUM CARB/VIT-D 500 MG/200 IU 1 TAB PO SCH ×3 (08:52→16:17)
[2019-06-06] MEDS: FUROSEMIDE 20 MG TAB PO SCH (08:52)
[2019-06-06] MEDS: MIDODRINE 5 MG TAB PO SCH ×3 (08:52→16:16)
[2019-06-06] MEDS: TOPIRAMATE 100 MG TAB PO SCH ×2 (08:53→20:56)
[2019-06-06] MEDS: BACLOFEN 10 MG TAB PO SCH ×3 (08:53→16:16)
[2019-06-06] MEDS: clonazePAM 0.5 MG TAB PO SCH ×2 (08:54→20:58)
[2019-06-06] MEDS: CHOLECALCIFEROL 1,000 IU TAB PO SCH (08:54)
[2019-06-06] MEDS: CLOBAZAM 20 MG PO SCH ×2 (08:55→20:58)
--- NOTE | 2019-06-06 09:25 | NUR ---
UPDATED PT'S CONDITION TO DR. JONAS Castro. PER DR. JONAS Barrientos D/Chinedu LASIX ORDER. WILL CARRY OUT.
[2019-06-06] MEDS: DOPamine 400 MG/D5W PREMIX 250 ML IV PRN (11:39)
--- NOTE | 2019-06-06 12:00 | NUR ---
RESIDUAL CHECKED 20 CC. RETURNED BACK. INCREASED TO 70 CC/HR. NO SITUATION CHANGE. NO S/S OF RESPIRATORY DISTRESS NOTED.
--- NOTE | 2019-06-06 15:30 | NUR ---
TURNED AND REPOSITIONED PT. PT HAS ONE SMALL AMOUNT OF BM. CLEANED PT.
--- NOTE | 2019-06-06 17:00 | NUR ---
RESIDUAL CHECKED 20 CC. RETURNED BACK. NO SITUATION CHANGE. NO S/S OF RESPIRATORY DISTRESS NOTED.
--- NOTE | 2019-06-06 19:30 | NUR ---
REPORT RECEIVED FROM DAYSFLFT NURSEARA FOR CONTINUITY OF CARE. PT RESTING WITH EYES CLOSED, SPONTANEOUS EYE-OPENING, NON-VERBAL EXCEPT FOR OCCASIONAL MOANING. HX MENTAL RETARDATION. PERRL, PUPILS 3MM. NGT TO RT NARES WITH JEVITY RUNNING @ 70 ML/HR. + PLACEMENT VERIFIED WITH AIR BOLUS, ZERO RESIDUAL ASPIRATED. RESP EVEN UNLABORED ON RA. LUNGS CLEAR THROUGHOUT. LEFT FEMORAL LINE IN PLACE, INFUSING DOPAMINE 5MCG/KG/MIN, D5 1/2 NS AT 70ML/HR. ABD SOFT, NON DISTENDED, AND NON TENDER UPON PALPATION. +BS NOTED. SCALES IN PLACE, DRAINING CLEAR, YELLOW, URINE TO GRAVITY, BILAT LOWER EXTREMITIES WITH NON PITTING EDEMA. SCD'S IN PLACE PROPHYLACTICALLY. SAFETY MEASURES IN PLACE WITH BED LOW AND LOCKED, SEIZURE PRECAUTIONS IN PLACE. WILL CONTINUE TO MONITOR.
--- NOTE | 2019-06-06 19:48 | NUR ---
RECEIVED PT FROM AM SHIFT. PT IN NO APPARENT RESPIRATORY DISTRESS AT THIS TIME; HR 70, RR 16, SPO2 98% ON ROOM AIR, AND A CLEAR BREATH SOUNDS ON UPPER LOWERS. HHN TX GIVEN ORDERED WITH NO ADVERSE REACTION. BVM AT BEDSIDE AND HOB > 30. WILL CONTINUE TO MONITOR PT.
--- NOTE | 2019-06-06 21:05 | NUR ---
SHANTANU, FROM [facility] IN TO VISIT PT @ THIS TIME.
--- NOTE | 2019-06-06 21:25 | NUR ---
DR LANE IN TO EXAMINE PT @ THIS TIME. UPDATED ON STATUS.
[2019-06-07] VITALS (57 sets, daily range): BP systolic 85–119; BP diastolic 39–62
--- NOTE | 2019-06-07 | NUR ---
MODERATE SOFT, FORMED, BM. CATHETER CARE PROVIDED. REPOSITIONED WITH PRESSURE AREAS OFFLOADED. FLACC 0. SAFETY/SEIZURE PRECAUTIONS REMAIN IN PLACE WITH HOB AT 30 DEGREES. ALL OTHER NEEDS BEING MET. WILL CONT TO MONITOR.
[2019-06-07] MEDS: Z-GUARD PASTE TP SCH ×2 (00:55→12:32)
[2019-06-07] MEDS: ALBUTEROL SULFATE/IPRATROPIU 3 ML SOL IH SCH ×4 (01:01→18:55)
--- NOTE | 2019-06-07 02:00 | NUR ---
PT RESTING IN BED, EASILY AROUSABLE. FLACC 0. CONTINUES ON DOPAMINE DRIP TO MAINTAIN BP @ THIS TIME. WILL CONT TO MONITOR
--- NOTE | 2019-06-07 04:00 | NUR ---
BED BATH/ ORAL CARE PROVIDED @ THIS TIME. CONTINUES ON NGT FEEDING WITH DOSAGE GOAL MET ORDERED. ZERO RESIDUAL AT THIS TIME
[2019-06-07] MEDS: LEVOTHYROXINE 0.1 MG TAB PO SCH (05:33)
[2019-06-07] MEDS: DOPamine 400 MG/D5W PREMIX 250 ML IV PRN (05:35)
--- NOTE | 2019-06-07 06:00 | NUR ---
SMALL SOFT BM AT THIS TIME. FLACC 0. HOB 30 DEGREES. SAFETY PRECAUTIONS REMAIN IN PLACE. ALL OTHER NEEDS BEING MET. WILL CONTINUE TO MONITOR .
[2019-06-07 06:28] LABS: BASOPHILS % (AUTO) 0.8 % (0.0-2.0); EOSINOPHILS # (AUTO) 0.3 K/uL (0-0.4); EOSINOPHILS % (AUTO) 5.5 % (0.0-4.0); HEMATOCRIT 31.2 % (36-48); HEMOGLOBIN 10.8 g/dL (12.0-16.0); LYMPHOCYTES # (AUTO) 1.3 K/uL (2.5-16.5); LYMPHOCYTES % (AUTO) 28.7 % (20.5-51.1); MEAN CORPUSCULAR HEMOGLOBIN 31 pg (27-31); MEAN CORPUSCULAR HGB CONC 35 g/dL (33-37); MEAN CORPUSCULAR VOLUME 88.6 fL (80-94); MONOCYTES # (AUTO) 0.4 K/uL (0.8-1.0); MONOCYTES % (AUTO) 9.5 % (1.7-9.3); NEUTROPHILS # (AUTO) 2.6 K/uL (1.8-7.7); NEUTROPHILS % (AUTO) 55.5 % (42.2-75.2); PLATELET COUNT (AUTO) 118 K/uL (140-450); RED BLOOD CELL COUNT(AUTO) 3.52 MIL/uL (4.20-5.40); RED CELL DISTRIBUTION WIDTH 13.7 % (11.6-13.7); WHITE BLOOD COUNT (AUTO) 4.7 K/uL (4.8-10.8)
[2019-06-07 06:55] LABS: ALBUMIN 2.3 g/dL (3.4-5.0); ANION GAP 12.2 (8-16); CARBON DIOXIDE 22.5 mmol/L (21-32); CREATININE 0.6 mg/dL (0.6-1.3); POTASSIUM 3.7 mmol/L (3.5-5.1); TOTAL BILIRUBIN 0.2 mg/dL (0.0-1.0)
--- NOTE | 2019-06-07 07:30 | NUR ---
RECEIVED FROM PM SHIFT RN. EYES CLOSED, NON VERBAL EXCEPT FOR OCCASIONAL MOANING. HX MENTAL RETARDATION. PERRL, PUPILS 3MM. BEDSIDE MONITOR SHOWS SR 70S. ON RA. O2 SATS 97%. NGT TO RT NARES WITH JEVITY 1.2 RUNNING @ 70 ML/HR. + PLACEMENT VERIFIED . RESIDUAL 20 CC ASPIRATED AND RETURNED IT BACK. LUNGS CLEAR THROUGHOUT. LEFT FEMORAL LINE IN PLACE, INFUSING D5 1/2 NS AT 70ML/HR AND LEVOPHED AT 5 MCG/KG/MIN BASED ON DRY WEIGHT 79 KG. ABD SOFT, NON DISTENDED, AND NON TENDER UPON PALPATION. SCALES IN PLACE, DRAINING CLEAR, YELLOW, URINE TO GRAVITY, NO FEVER. SKIN INTACT. SAFETY MEASURES IN PLACE, SEIZURE PRECAUTIONS IN PLACE. WILL CONTINUE TO MONITOR.
[2019-06-07] MEDS: LACTOBACILLUS RHAMNOSUS GG 1 EACH CAP PO SCH (08:16)
[2019-06-07] MEDS: TOPIRAMATE 100 MG TAB PO SCH ×2 (08:16→21:08)
[2019-06-07] MEDS: MIDODRINE 5 MG TAB PO SCH ×3 (08:17→16:03)
[2019-06-07] MEDS: CALCIUM CARB/VIT-D 500 MG/200 IU 1 TAB PO SCH ×3 (08:17→16:03)
[2019-06-07] MEDS: VIT-B COMP/VIT-C/FOLIC ACID 1 TAB PO SCH (08:17)
[2019-06-07] MEDS: levETIRAcetam 500 MG TAB PO SCH ×2 (08:17→21:08)
[2019-06-07] MEDS: clonazePAM 0.5 MG TAB PO SCH ×2 (08:18→21:08)
[2019-06-07] MEDS: CLOBAZAM 20 MG PO SCH ×2 (08:19→21:11)
[2019-06-07] MEDS: ATORVASTATIN 20 MG TAB PO SCH (08:19)
[2019-06-07] MEDS: BACLOFEN 10 MG TAB PO SCH ×3 (08:20→16:03)
[2019-06-07] MEDS: CHOLECALCIFEROL 1,000 IU TAB PO SCH (08:22)
[2019-06-07] MEDS: LACTULOSE 20 GM/30 ML UDC PO SCH (08:22)
[2019-06-07] MEDS: POLYETHYLENE GLYCOL 17 GM/PKT PO SCH (08:22)
--- NOTE | 2019-06-07 09:00 | NUR ---
DUE MEDS GIVEN. PT TOLERATED WELL. 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
[2019-06-07] MEDS: DEXT 5% / NACL 0.45% 1,000 ML IV SCH ×2 (09:17→23:39)
--- NOTE | 2019-06-07 09:22 | NUR ---
Social Work Note: Basic Screen: Yes High Risk DC Screen Yes Name: DAPHNIE BARAJAS [place] Relationship: [facility] ASSISTANT Pre-Admission Living Arrangements: Lives with Other Other: [facility] Prior ADL Total/Dependent Current Home Health Name/Tel: N/A Current DME/02 Name/Tel: [employer] Current Hospice Name/Tel: N/A Current Dialysis Name/Tel: N/A Healthcare Decision Maker: Community/case filler Other: [facility] - DAPHNIE BARAJAS Advance Directive No Physician Orders for Life Sustaining Treatment Form No Patient/Family Have Educational Needs No Information Taught: Advance Directive Discipline: Case Mgt/Social Svcs Tentative Discharge Plan/Destination: Other Other: [facility] Will require assistance post discharge: No Referred to Technical Administrator: No Tentative Discharge Plan Summary: Patient is a 54-year-old female admitted for pneumonia. Patient has PMHX of thyroid disease and seizures. Patient was admitted from [facility]. contacted Yakov from [facility] [phone]. Per Yakov, patient is non-ambulatory and requires total assistance with ADLS. Patient utilizes a wheelchair and cannot do any ADLs independently. Per Yakov, healthcare decision maker is Daphnie Barajas [facility] continuous pillowcase cutter, and patient has no family involved with her care. Tentative discharge plan is for patient to return to [facility]. No further needs identified. Signature: WESLY Alcaraz Date: Jun 07, 2019 Time: 09:21
--- NOTE | 2019-06-07 12:00 | NUR ---
DR. RODRIGUEZ AND DR. MCDANIEL Y CAME IN TO SEE PT. UPDATED PT'S CONDITION. PER , KEEP PT MAP >= 60. INCREASE MIDODRINE TO 10 MG TID. PER Cris MORALES. TRY TO WEAN PT OFF DOPAMINE DRIP .
--- NOTE | 2019-06-07 13:40 | NUR ---
TURNED AND REPOSITIONED PT. PT HAS MODERATE AMOUNT OF SOFT BM. CLEANED PT. PT TOLERATED WELL. RESIDUAL CHECKED ABOUT 15CC. RETURNED IT BACK.
--- NOTE | 2019-06-07 14:03 | NUR ---
*S.T. Note* Spoke w/ RN Morena re: pt's current tolerance of NGT and why pt has NGT instead of GT/PEG due to pending consent. RN recommended that no P.O. trials be given at this time due to lack of change in mentation and ability to participate since last tx on 06/04/19. Will DC swallow tx at this time as pt presents w/ limited rehab potential and is tolerating TF very well and does not appear in distress. Pt was not given any P.O. trials. Time 1350
--- NOTE | 2019-06-07 14:52 | NUR ---
06/07/19 RD FOLLOW UP COMPLETED PLEASE REFER TO NUTRITION ASSESSMENT UNDER CARE ACTIVITY FOR ESTIMATED NUTRITIONAL NEEDS. 1. CONTINUE JEVITY 1.2 @ 70 ML/HR X 24 HRS VIA NG-TUBE -THIS WILL PROVIDE 2016 KCAL AND 93 GM OF PROTEIN WHICH MEETS 100% OF ESTIMATED NUTRIENT NEEDS 2. CONTINUE FREE WATER FLUSH OF 110 ML Q4H 3. 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 RD TO FOLLOW-UP 2-3 DAYS, HIGH RISK MAKAYLA ASH RD
--- NOTE | 2019-06-07 16:24 | NUR ---
TURNED AND REPOSITIONED PT. PT TOLERATED WELL. PT HAS MODERATE AMOUNT OF LOOSE BM. CLEANED PT. DUE MEDS GIVEN. RESIDUAL CHECKED ABOUT 10 CC. PLACEMENT CHECKED.
--- NOTE | 2019-06-07 17:15 | NUR ---
DR.PALIWAL Castro IN UNIT, MADE AWARE WE DID NOT GET CONSENT FOR G-TUBE YET DUE TO LONG WEEKEND. BUT WE LEFT VOICE MESSAGE TO [facility], HOPEFUL WILL GET INFORMATION BACK TOMORROW. DR. MCDANIEL, Matthew STATED THAT'S FINE.
--- NOTE | 2019-06-07 18:58 | NUR ---
PT RESTING IN BED. NO S/S OF RESPIRATORY DISTRESS NOTED. VITALS STABLE.
--- NOTE | 2019-06-07 19:00 | NUR ---
RECEIVED PT FROM AM SHIFT. PT IN NO APPARENT RESPIRATORY DISTRESS AT THIS TIME; HR 77, RR 18, SPO2 95% ON ROOM AIR, AND A CLEAR DIMINISHED BREATH SOUNDS ON UPPER LOWERS. HHN TX GIVEN ORDERED WITH NO ADVERSE REACTION. BVM AT BEDSIDE AND HOB > 30. WILL CONTINUE TO MONITOR PT.
--- NOTE | 2019-06-07 19:29 | NUR ---
REPORT RECEIVED FROM [facility] NURSEARA FOR CONTINUITY OF CARE. PT RESTING WITH EYES CLOSED, SPONTANEOUS EYE-OPENING, NON-VERBAL EXCEPT FOR OCCASIONAL MOANING. HX MENTAL RETARDATION. PERRL, PUPILS 3MM. NGT TO RT NARES WITH JEVITY RUNNING @ 70 ML/HR. + PLACEMENT VERIFIED WITH AIR BOLUS, ZERO RESIDUAL ASPIRATED. RESP EVEN UNLABORED ON RA. LUNGS COARSE THROUGHOUT. LEFT FEMORAL LINE IN PLACE, INFUSING D5 1/2 NS AT 70ML/HR. S/P PRESSORS. BP 99/50 AT THIS TIME. ABD SOFT, NON DISTENDED, AND NON TENDER UPON PALPATION. +BS NOTED. SCALES IN PLACE, DRAINING CLEAR, YELLOW, URINE TO GRAVITY, BILAT LOWER EXTREMITIES WITH NON PITTING EDEMA. SCD'S IN PLACE PROPHYLACTICALLY. SAFETY MEASURES IN PLACE WITH BED LOW AND LOCKED, SEIZURE PRECAUTIONS IN PLACE. WILL CONTINUE TO MONITOR FOR CHANGES.
--- NOTE | 2019-06-07 22:00 | NUR ---
REPOSITIONED PT WITH PRESSURE AREAS OFFLOADED. FLACC 0. ORAL CARE PROVIDED. SAFETY/SEIZURE PRECAUTIONS REMAIN IN PLACE WITH BED LOW AND LOCKED AND HOB 30 DEGREES. WILL CONTINUE TO MONITOR.
[2019-06-08] VITALS (10 sets, daily range): BP systolic 90–129; BP diastolic 50–78
--- NOTE | 2019-06-08 | NUR ---
RESTING IN BED WITH EYES CLOSED. EASILY AROUSABLE. BP REMAINS WNL. BED LOW AND LOCKED WITH SEIZURE/SAFETY PRECAUTIONS IN PLACE AND HOB ELEVATED TO 30 DEGREES. WILL CONTINUE TO MONITOR.
[2019-06-08] MEDS: Z-GUARD PASTE TP SCH ×2 (00:45→12:38)
[2019-06-08] MEDS: ALBUTEROL SULFATE/IPRATROPIU 3 ML SOL IH SCH ×4 (01:09→19:55)
--- NOTE | 2019-06-08 02:00 | NUR ---
MODERATE SIZED BM. SOFT AND FORMED. PERICARE PROVIDED. REPOSITIONED. RESIDUAL ZERO AT THIS TIME. TUBE FEEDING REMAINS INFUSING ORDERED. BED LOW AND LOCKED. SAFETY PRECAUTIONS REMAIN IN PLACE. WILL CONT TO MONITOR.
--- NOTE | 2019-06-08 04:00 | NUR ---
BED BATH GIVEN AT THIS TIME. ORAL CARE PROVIDED. CATH CARE PROVIDED. HOB 30 DEGREES. ALL OTHER NEEDS BEING MET. WILL CONT TO MONITOR
[2019-06-08] MEDS: LEVOTHYROXINE 0.1 MG TAB PO SCH (05:53)
[2019-06-08 06:30] LABS: POTASSIUM 3.6 mmol/L (3.5-5.1)
[2019-06-08 06:31] LABS: ANION GAP 10.7 (8-16); CARBON DIOXIDE 23.9 mmol/L (21-32); CREATININE 0.5 mg/dL (0.6-1.3)
--- NOTE | 2019-06-08 06:40 | NUR ---
RESPIRATORY AT BEDSIDE @ THIS TIME.
--- NOTE | 2019-06-08 07:10 | NUR ---
RECEIVED PT REPORT FROM ENDLESS BELT FINISHER RNCINDY. PT SLEEPING, AROUSED BY NAME AND LIGHT TOUCH. OPEN EYES SPONTANEOUSLY, PERRL. NO S/S OF ACUTE DISTRESS IN ROOM AIR. SR ON MONITOR. CENTRAL LINE TO LEFT FEMORAL, DRESSING INTACT, RUNNING D5 1/2NS AT 70ML/HR. LUNGS SOUNDS COARSE, BOWELS SOUNDS ACTIVE. RIGHT UE CONTRACTED. SCALES CATH IN PLACE WITH CLEAR YELLOW URINE. PT HAD BM, MODERATE AMOUNT, BROWN STOOL. PT WAS CLEANED AND CHUX WAS CHANGED. Z GUARD APPLIED FOR PREVENTATIVE MEASURES. FALL AND SZ PRECAUTIONS IN PLACE.
[2019-06-08 08:10] LABS: BASOPHILS % (AUTO) 0.7 % (0.0-2.0); EOSINOPHILS # (AUTO) 0.2 K/uL (0-0.4); EOSINOPHILS % (AUTO) 4.5 % (0.0-4.0); HEMATOCRIT 28.7 % (36-48); LYMPHOCYTES # (AUTO) 1.4 K/uL (2.5-16.5); LYMPHOCYTES % (AUTO) 31.7 % (20.5-51.1); MEAN CORPUSCULAR HEMOGLOBIN 31 pg (27-31); MEAN CORPUSCULAR HGB CONC 35 g/dL (33-37); MEAN CORPUSCULAR VOLUME 89.4 fL (80-94); MONOCYTES # (AUTO) 0.3 K/uL (0.8-1.0); MONOCYTES % (AUTO) 7.4 % (1.7-9.3); NEUTROPHILS # (AUTO) 2.5 K/uL (1.8-7.7); NEUTROPHILS % (AUTO) 55.7 % (42.2-75.2); PLATELET COUNT (AUTO) 117 K/uL (140-450); RED BLOOD CELL COUNT(AUTO) 3.21 MIL/uL (4.20-5.40); RED CELL DISTRIBUTION WIDTH 13.8 % (11.6-13.7); WHITE BLOOD COUNT (AUTO) 4.5 K/uL (4.8-10.8)
[2019-06-08] MEDS: POLYETHYLENE GLYCOL 17 GM/PKT PO SCH (09:00)
[2019-06-08] MEDS: TOPIRAMATE 100 MG TAB PO SCH ×2 (09:19→20:23)
[2019-06-08] MEDS: ATORVASTATIN 20 MG TAB PO SCH (09:19)
[2019-06-08] MEDS: levETIRAcetam 500 MG TAB PO SCH ×2 (09:20→20:21)
[2019-06-08] MEDS: CLOBAZAM 20 MG PO SCH ×2 (09:21→20:24)
[2019-06-08] MEDS: CALCIUM CARB/VIT-D 500 MG/200 IU 1 TAB PO SCH ×3 (09:21→16:20)
[2019-06-08] MEDS: BACLOFEN 10 MG TAB PO SCH ×3 (09:22→16:20)
[2019-06-08] MEDS: LACTOBACILLUS RHAMNOSUS GG 1 EACH CAP PO SCH (09:23)
[2019-06-08] MEDS: FAMOTIDINE 20 MG TAB PO SCH (09:23)
[2019-06-08] MEDS: VIT-B COMP/VIT-C/FOLIC ACID 1 TAB PO SCH (09:23)
[2019-06-08] MEDS: MIDODRINE 5 MG TAB PO SCH ×3 (09:23→16:20)
[2019-06-08] MEDS: LACTULOSE 20 GM/30 ML UDC PO SCH (09:24)
[2019-06-08] MEDS: CHOLECALCIFEROL 1,000 IU TAB PO SCH (09:24)
[2019-06-08] MEDS: clonazePAM 0.5 MG TAB PO SCH ×2 (09:26→20:22)
--- NOTE | 2019-06-08 09:31 | NUR ---
CALLED [facility] [phone] EX [phone], LEFT A MESSAGE INCLUDING PT'S NAME AND CALL BACK NUMBER. ASKING FOR CONSENT OF THE GTUBE PLACEMENT.
--- NOTE | 2019-06-08 10:25 | NUR ---
MR JOHN FROM [facility] CALLED BACK AND I FAXED CONSENT FORM FOR G TUBE PLACEMENT TO [phone].
[2019-06-08] MEDS ORDERED: NICOTINE TRANSD SYS 21 MG/24 HR PATCH TD SCH (12:37)
--- NOTE | 2019-06-08 15:04 | NUR ---
NEW FREE WATER FLUSH RECOMMENDATIONS OF 275 ML Q4H GIVEN TO MILAN CHARGE NURSE. MAKAYLA ASH RD
--- NOTE | 2019-06-08 16:13 | NUR ---
DR JONAS GOMEZ CAME AND ASSESSED PT.
--- NOTE | 2019-06-08 19:30 | NUR ---
RECEIVED REPORT FROM DAY SHIFT RN. PT HAS EYES OPEN, UNABLE TO RESPOND TO VERBAL PROMPTS, CONTRACTURES TO BILATERAL UPPER EXTREMITIES, NON VERBAL. S1 S2 TRACE EDEMA GENERALIZED. PALPABLE PULSES. LUNGS CLEAR UPPER LOBES, DIMINISHED LOWER LOBES, ROOM AIR. ABD SOFT NON DISTENDED, NGT R NARES WITH JEVITY RUNNING, <20 ML RESIDUALS NOTED. SCALES CATH IN PLACE, CLEAR YELLOW URINE NOTED. SKIN INTACT. TRIPLE LUMEN CENTRAL LINE IN PLACE, DRESSING CDI. SCDS IN PLACE. BED LOCKED IN LOWEST POSITION. SAFETY PRECAUTIONS IN PLACE. SEIZURE PRECAUTIONS IN PLACE.
--- NOTE | 2019-06-08 19:57 | NUR ---
RECEIVED PT FROM AM SHIFT. PT IN NO APPARENT RESPIRATORY DISTRESS AT THIS TIME; HR 63, RR 19, SPO2 93% ON ROOM AIR, AND A COARSE BREATH SOUNDS ON UPPER LOWERS. HHN TX GIVEN ORDERED WITH NO ADVERSE REACTION. BVM AT BEDSIDE AND HOB > 30. WILL CONTINUE TO MONITOR PT.
--- NOTE | 2019-06-08 22:15 | NUR ---
PT TURNED AND REPOSITIONED, FLACC 0. WILL CONTINUE TO OBSERVE
[2019-06-09] VITALS: BP 117/62
--- NOTE | 2019-06-09 00:13 | NUR ---
NO ACUTE S/S OF DISTRESS NOTED. FLACC 0. WILL CONTINUE TO OBSERVE.
[2019-06-09] MEDS: Z-GUARD PASTE TP SCH ×2 (00:48→14:00)
[2019-06-09] MEDS: ALBUTEROL SULFATE/IPRATROPIU 3 ML SOL IH SCH ×4 (01:35→19:39)
[2019-06-09 04:00] VITALS: BP 108/67
--- NOTE | 2019-06-09 04:00 | NUR ---
AM CARE DONE, VAP ORAL CARE DONE. FLACC 0 NO ACUTE DISTRESS NOTED. WILL CONTINUE TO OBSERVE.
[2019-06-09] MEDS: LEVOTHYROXINE 0.1 MG TAB PO SCH (05:33)
[2019-06-09 06:18] LABS: ANION GAP 13.4 (8-16); CARBON DIOXIDE 20.7 mmol/L (21-32); CREATININE 0.5 mg/dL (0.6-1.3); POTASSIUM 3.1 mmol/L (3.5-5.1)
[2019-06-09 07:01] LABS: BASOPHILS % (AUTO) 0.7 % (0.0-2.0); EOSINOPHILS # (AUTO) 0.2 K/uL (0-0.4); EOSINOPHILS % (AUTO) 3.9 % (0.0-4.0); HEMATOCRIT 30.7 % (36-48); HEMOGLOBIN 10.6 g/dL (12.0-16.0); LYMPHOCYTES # (AUTO) 1.5 K/uL (2.5-16.5); LYMPHOCYTES % (AUTO) 26.4 % (20.5-51.1); MEAN CORPUSCULAR HEMOGLOBIN 31 pg (27-31); MEAN CORPUSCULAR HGB CONC 35 g/dL (33-37); MEAN CORPUSCULAR VOLUME 89.3 fL (80-94); MONOCYTES # (AUTO) 0.5 K/uL (0.8-1.0); NEUTROPHILS # (AUTO) 3.4 K/uL (1.8-7.7); PLATELET COUNT (AUTO) 141 K/uL (140-450); RED BLOOD CELL COUNT(AUTO) 3.44 MIL/uL (4.20-5.40); RED CELL DISTRIBUTION WIDTH 13.7 % (11.6-13.7); WHITE BLOOD COUNT (AUTO) 5.7 K/uL (4.8-10.8)
--- NOTE | 2019-06-09 07:30 | NUR ---
RECIVED REPORT FROM ANAHY AT BEDSIDE, PT IS SLEEPING ON LEFT SIDE. AFEBRILE SKIN DRY ANE WARM TO TOUCH COLOR IS NORMAL.SHE IS ON ROOM AIR O2 SAT93% NG TUBE FEEDING WITH JEVITY1.2 AT 70ML/HR , SCALES CATH DRAIN YELLOW URINE.HAS BILATERAL SCDN.
[2019-06-09 08:00] VITALS: BP 117/69
--- NOTE | 2019-06-09 08:13 | NUR ---
REPOSITION ,ORAL CARE GIVEN,
--- NOTE | 2019-06-09 08:20 | NUR ---
LYLA FROM [facility] CALLED FOR IN FORMATION FOR G TUBE PLACEMENT.CONSENT, WILL FAX THE CONSENT OVER WHEN IT GET APPROVED. Addendum: 06/09/19 at 1112 by Matthias Colbert RN LYLA FROM [facility] CALLED.
--- NOTE | 2019-06-09 08:50 | NUR ---
SEEN BY DR. ALEJO Castro AT BEDSIDE, NO ORDER CHANGED.
[2019-06-09] MEDS ORDERED: NICOTINE TRANSD SYS 21 MG/24 HR PATCH TD SCH (09:00)
[2019-06-09] MEDS: LACTULOSE 20 GM/30 ML UDC PO SCH (09:01)
[2019-06-09] MEDS: MIDODRINE 5 MG TAB PO SCH ×3 (09:02→17:57)
[2019-06-09] MEDS: FAMOTIDINE 20 MG TAB PO SCH (09:02)
[2019-06-09] MEDS: BACLOFEN 10 MG TAB PO SCH (09:02)
[2019-06-09] MEDS: VIT-B COMP/VIT-C/FOLIC ACID 1 TAB PO SCH (09:04)
[2019-06-09] MEDS: clonazePAM 0.5 MG TAB PO SCH ×2 (09:06→21:22)
[2019-06-09] MEDS: TOPIRAMATE 100 MG TAB PO SCH ×2 (09:08→21:21)
[2019-06-09] MEDS: ATORVASTATIN 20 MG TAB PO SCH (09:09)
[2019-06-09] MEDS: CALCIUM CARB/VIT-D 500 MG/200 IU 1 TAB PO SCH ×3 (09:10→17:57)
[2019-06-09] MEDS: POLYETHYLENE GLYCOL 17 GM/PKT PO SCH (09:10)
[2019-06-09] MEDS: LACTOBACILLUS RHAMNOSUS GG 1 EACH CAP PO SCH (09:10)
[2019-06-09] MEDS: levETIRAcetam 500 MG TAB PO SCH ×2 (09:11→21:20)
[2019-06-09] MEDS: CHOLECALCIFEROL 1,000 IU TAB PO SCH (09:12)
[2019-06-09] MEDS: CLOBAZAM 20 MG PO SCH ×2 (09:13→21:24)
[2019-06-09] MEDS ORDERED: POTASSIUM CHLORIDE 20% 40 MEQ/15 ML UDC GT SCH ×2 (09:30→18:00)
--- NOTE | 2019-06-09 10:45 | NUR ---
PEARL BROUSSARD CALLED ,HE RECEIVED FROM THE [facility] IT O,K TO DO THE G. TUBE PLACEMENT , HOLD NGT FEEDING.
[2019-06-09 12:00] VITALS: BP 112/59
--- NOTE | 2019-06-09 14:00 | NUR ---
RECEIVED THE CONSENT FOE EGD AND PEG TUBE INSERTION FROM [facility].
[2019-06-09] MEDS ORDERED: diphenhydrAMINE 50 MG/ML VIAL ONE (14:08)
[2019-06-09] MEDS ORDERED: MIDAZOLAM 2 MG/2 ML VIAL ONE (14:08)
[2019-06-09] MEDS ORDERED: fentaNYL 0.05 MG/ML VIAL ONE (14:08)
--- NOTE | 2019-06-09 14:35 | NUR ---
DR PEARL WILLARD G EGD AND PEG TUBE PROCEDURE POST DIAGNOSIS IS GASTROPARESIS H-H. PEG TUBE IS INPLACE,
--- NOTE | 2019-06-09 15:30 | NUR ---
PT WAS PUT ON O2 AT 4L/NC DURING THE PROCEDURE AND LEFT IN ON AFTER.
[2019-06-09] MEDS ORDERED: METOCLOPRAMIDE 10 MG/2 ML INJ VIAL IVP PRN (15:45)
[2019-06-09] MEDS ORDERED: MIDAZOLAM 2 MG/2 ML VIAL IVP ONE (15:55)
[2019-06-09] MEDS ORDERED: fentaNYL 0.05 MG/ML VIAL IVP ONE (15:55)
[2019-06-09 16:00] VITALS: BP 106/62
--- NOTE | 2019-06-09 17:00 | NUR ---
THE PATIENT IS STILL NPO FOR PEG TUBE INSERTION PROCEDURE 1300 MED AAD THE 1700PM MED IS GIVE ONLY ONE DOSE.
--- NOTE | 2019-06-09 17:12 | NUR ---
DR. Matthew MCDANIEL CALLED INFORM THAT THE EGD AND PEG TUBE INSERTION IS COMPLETED.
--- NOTE | 2019-06-09 18:10 | NUR ---
TRANSFER TO 119A IN BED VITAL SIGN IS STABLE DURING TRANSFER BED SIDE REPORT GIVE AT BED SIDE.
--- NOTE | 2019-06-09 18:20 | NUR ---
RECEIVED PT FROM ICU NURSE. PT RESTING IN BED UPON ARRIVAL. FLACC 0. SKIN WARM AND DRY TO TOUCH. RESPIRATIONS EVEN AND UNLABORED WITH NO SOB OR RESPIRATORY DISTRESS. CENTRAL LINE IN LEFT FEMORAL VEIN IS CLEAN, DRY, AND INTACT. SCALES CATHETER IS DRAINING CLEAR, YELLOW URINE. VITAL SIGNS ARE FOLLOWS: 92/52 BP, 97.6 TEMP, 18 RR, 02 96% ON 3L NC, 77 HR. PT HOOKED UP TO TELE MONITOR. SAFETY MEASURES IN PLACE. WILL CONTINUE TO MONITOR.
--- NOTE | 2019-06-09 19:15 | NUR ---
ENDORSED AT BEDSIDE TO NIGHTSHIFT NURSE. PT RESTING IN BED UPON ARRIVAL. FLACC 0. SKIN WARM AND DRY TO TOUCH. RESPIRATIONS EVEN AND UNLABORED WITH NO SOB OR RESPIRATORY DISTRESS. SAFETY MEASURES IN PLACE. PT IS STABLE
--- NOTE | 2019-06-09 19:15 | NUR ---
RECIEVED PT AAOX1 - RESPONDING BY BLINKING OF EYES , MOVING OF THE HEAD WHEN CALLING HER NAME , - NON VERBAL . PICC LINE PATENT AND INTACT . W/ G TUBE -PATENT AND INTACT . NID - O2 SAT WNL , LOW MELISSA SCALE - BUT SKIN STILL INTACT . W/ FC CONNECTING TO URINE BAG DRAINING CLEAR U.O. POC DISCUSSED BUT POOR UNDERSTANDING DUE TO MENTAL STATUS . ON S2 , SAFETY / FALL PRECAUTION PROTOCOL - BED ALARM ON . CALL LIGHT WITHIN REACH. WILL CONT. TO MONITOR. WILL ADMINITER G TUBE FEEDING ORDERED .
[2019-06-09 20:00] VITALS: BP 130/90
[2019-06-09] MEDS ORDERED: POTASSIUM CHLORIDE 20% 40 MEQ/15 ML UDC ONE (21:14)
--- NOTE | 2019-06-09 22:00 | NUR ---
MADE ROUNDS , NO SIGNS OF ACUTE DISTRESS NOTED AT THIS TIME. WILL CONT. TO MONITOR. ON GUITAR REPAIR TECHNICIAN .
[2019-06-10] VITALS: BP 130/78
--- NOTE | 2019-06-10 | NUR ---
MADE ROUNDS , NO SIGNS OF ACUTE DISTRESS NOTED AT THIS TIME - FEEDING TOLERATED - WILL CONT. TO MONITOR.
[2019-06-10] MEDS: Z-GUARD PASTE TP SCH ×2 (01:00→12:27)
[2019-06-10] MEDS: ALBUTEROL SULFATE/IPRATROPIU 3 ML SOL IH SCH ×4 (01:17→19:17)
--- NOTE | 2019-06-10 02:00 | NUR ---
SLEEPING . RESP. EVEN AND UNLABORED . WILL CONT. TO MONITOR. FEEDING TOLERATED
[2019-06-10 04:00] VITALS: BP 122/70
--- NOTE | 2019-06-10 04:00 | NUR ---
MADE ROUNDS , NO SIGNS OF DISTRESS NOTED AT THIS TIME , WILL CONT. O2 SAT WNL.
--- NOTE | 2019-06-10 06:00 | NUR ---
SLEEPING , RESP. EVEN AND UNLABORED , O2 SAT WNL . WILL CONT. TO MONITOR.
[2019-06-10 06:13] LABS: BASOPHILS % (AUTO) 0.6 % (0.0-2.0); EOSINOPHILS # (AUTO) 0.2 K/uL (0-0.4); EOSINOPHILS % (AUTO) 3.1 % (0.0-4.0); HEMATOCRIT 31.6 % (36-48); HEMOGLOBIN 10.8 g/dL (12.0-16.0); LYMPHOCYTES # (AUTO) 1.2 K/uL (2.5-16.5); LYMPHOCYTES % (AUTO) 18.6 % (20.5-51.1); MEAN CORPUSCULAR HEMOGLOBIN 31 pg (27-31); MEAN CORPUSCULAR HGB CONC 34 g/dL (33-37); MEAN CORPUSCULAR VOLUME 89.3 fL (80-94); MONOCYTES # (AUTO) 0.5 K/uL (0.8-1.0); MONOCYTES % (AUTO) 8.2 % (1.7-9.3); NEUTROPHILS # (AUTO) 4.6 K/uL (1.8-7.7); NEUTROPHILS % (AUTO) 69.5 % (42.2-75.2); PLATELET COUNT (AUTO) 164 K/uL (140-450); RED BLOOD CELL COUNT(AUTO) 3.54 MIL/uL (4.20-5.40); RED CELL DISTRIBUTION WIDTH 13.6 % (11.6-13.7); WHITE BLOOD COUNT (AUTO) 6.6 K/uL (4.8-10.8)
[2019-06-10] MEDS: LEVOTHYROXINE 0.1 MG TAB PO SCH (06:17)
[2019-06-10 06:29] LABS: ANION GAP 13.5 (8-16); CARBON DIOXIDE 24.6 mmol/L (21-32); CREATININE 0.6 mg/dL (0.6-1.3); POTASSIUM 4.1 mmol/L (3.5-5.1)
--- NOTE | 2019-06-10 07:28 | NUR ---
ENDORSED TO AM SHIFT FOR CONT. OF CARE . W/ STABLE CONDITION.
--- NOTE | 2019-06-10 07:29 | NUR ---
Received report from pm nurse Ester. Pt resting in bed, nonverbal, FLACC 0, respirations even & nonlabored on room air. GT intact with ongoing Nepro @ 20ml/h. HOB elevated @ 30. Left femoral 3-lumen PICC intact & asymptomatic. Del Angel cath intact & draining clear yellow urine. Call light within reach.
[2019-06-10 08:00] VITALS: BP 92/60
[2019-06-10] MEDS: levETIRAcetam 500 MG TAB PO SCH ×2 (08:48→20:47)
[2019-06-10] MEDS: LACTOBACILLUS RHAMNOSUS GG 1 EACH CAP PO SCH (08:48)
[2019-06-10] MEDS: FAMOTIDINE 20 MG TAB PO SCH (08:48)
[2019-06-10] MEDS: VIT-B COMP/VIT-C/FOLIC ACID 1 TAB PO SCH (08:49)
[2019-06-10] MEDS: TOPIRAMATE 100 MG TAB PO SCH ×2 (08:49→20:48)
[2019-06-10] MEDS: CHOLECALCIFEROL 1,000 IU TAB PO SCH (08:49)
[2019-06-10] MEDS: CALCIUM CARB/VIT-D 500 MG/200 IU 1 TAB PO SCH ×3 (08:49→16:47)
[2019-06-10] MEDS: MIDODRINE 5 MG TAB PO SCH ×3 (08:50→16:48)
[2019-06-10] MEDS: CLOBAZAM 20 MG PO SCH ×2 (08:51→20:48)
[2019-06-10] MEDS: clonazePAM 0.5 MG TAB PO SCH (09:09)
--- NOTE | 2019-06-10 10:45 | NUR ---
Pt asleep in bed, respirations even & nonlabored on O2 @ 2Lpm via n/c. GT intact with ongoing Nepro @ 20ml/h. Left femoral PICC 3-lumen intact @ asymptomatic. Del Angel cath intact @ draining clear yellow urine. Call light within reach.
[2019-06-10 12:00] VITALS: BP 105/64
[2019-06-10] MEDS ORDERED: CRUSHER, PILL MC ONE (12:13)
--- NOTE | 2019-06-10 12:50 | NUR ---
06/10/19 RD FOLLOW UP COMPLETED PLEASE REFER TO NUTRITION ASSESSMENT UNDER CARE ACTIVITY FOR ESTIMATED NUTRITIONAL NEEDS. 1. RECOMMEND JEVITY 1.2 @ 60 ML/HR X 24 HRS VIA G-TUBE -THIS WILL PROVIDE 1728 KCAL AND 80 GM OF PROTEIN WHICH MEETS 100% OF ESTIMATED NUTRIENT NEEDS 2. RECOMMEND FREE WATER FLUSH OF [address] TO FOLLOW-UP 2-3 DAYS, HIGH RISK MAKAYLA ASH RD
--- NOTE | 2019-06-10 13:03 | NUR ---
Daphnie Barajas ([facility]) came in to visit pt. Received her contact # as [phone].
--- NOTE | 2019-06-10 13:30 | NUR ---
Paged Dr. Ritchie re: dietary recommendations for tube feeding and discharge planning. Awaiting call back.
--- NOTE | 2019-06-10 14:38 | NUR ---
Dr Lopez came in to visit patient. Per physician, ok to increase GT feeding gradually to goal rate, and may discharge per GI.
--- NOTE | 2019-06-10 15:00 | NUR ---
Pt currently tolerating GT feeding well; residual 10ml. No vomiting, no diarrhea. Increased GT feeding rate from 20ml/h to 35ml/h.
[2019-06-10 15:04] LABS: ALBUMIN 2.8 g/dL (3.4-5.0); BILIRUBIN,DIRECT 0.1 mg/dL (0.0-0.3); TOTAL BILIRUBIN 0.3 mg/dL (0.0-1.0)
--- NOTE | 2019-06-10 15:24 | NUR ---
Spoke to Dr Floyd Ritchie re: discharge plan. Per physician, he will contact Dr Hansen re: antibiotic treatment plan and will call us back for further orders.
[2019-06-10 16:00] VITALS: BP 91/52
--- NOTE | 2019-06-10 16:30 | NUR ---
Dr Ritchie with order for SS request for SNF placement.
--- NOTE | 2019-06-10 18:41 | NUR ---
Pt resting in bed, no signs of distress, respirations even & nonlabored on O2 @ 2Lpm via n/c. GT intact with ongoing Nepro @ 35ml/h. Del Angel cath intact & draining clear yellow urine. Left femoral central line intact & asymptomatic. HOB elevated @ 30.
--- NOTE | 2019-06-10 19:22 | NUR ---
RECEIVED BEDSIDE REPORT FROM DAY SHIFT NURSECOLE. PT AAOX1 - RESPONDING BY BLINKING OF EYES, NON VERBAL . PICC LINE PATENT AND INTACT . W/ G TUBE -PATENT AND INTACT . BREATHING EVEN AND UNLABORED WITH O2 2LPM VIA NC. SKIN INTACT, WARM AND DRY TO TOUCH. PT HAS SCALES CATHETER. DRAINING CLEAR URINE. BED IN LOW POSITION, CALL LIGHT WITHIN REACH.
[2019-06-10 20:00] VITALS: BP 95/56
--- NOTE | 2019-06-10 20:48 | NUR ---
GIVEN KEPPRA, VIMPAT, CLOBAZAM, AND TOPIRAMATE MD ORDERED. PT TOLERATED WELL.
--- NOTE | 2019-06-10 22:30 | NUR ---
PT SLEEPING IN BED COMFORTABLY. NO ACUTE DISTRESS NOTED.
[2019-06-11] VITALS: BP 105/50
--- NOTE | 2019-06-11 00:22 | NUR ---
VS WITHIN PT'S BASELINE. NO ACUTE DISTRESS NOTED.
[2019-06-11] MEDS: ALBUTEROL SULFATE/IPRATROPIU 3 ML SOL IH SCH ×4 (00:59→18:57)
[2019-06-11] MEDS: Z-GUARD PASTE TP SCH ×2 (01:00→12:55)
--- NOTE | 2019-06-11 02:39 | NUR ---
PT SLEEPING IN BED COMFORTABLY. NO ACUTE DISTRESS NOTED.
[2019-06-11 04:00] VITALS: BP 91/40
--- NOTE | 2019-06-11 04:05 | NUR ---
VS CHECKED, WITHIN PT'S BASELINE, WILL CONTINUE TO MONITOR.
[2019-06-11] MEDS: LEVOTHYROXINE 0.1 MG TAB PO SCH (05:40)
--- NOTE | 2019-06-11 05:40 | NUR ---
GIVEN SYNTHROID MD ORDERED. RESIDUAL 250ML NOTED. HELD G-TUBE FEEDING.
[2019-06-11 06:10] LABS: BASOPHILS % (AUTO) 0.6 % (0.0-2.0); EOSINOPHILS # (AUTO) 0.2 K/uL (0-0.4); HEMATOCRIT 31.7 % (36-48); HEMOGLOBIN 10.9 g/dL (12.0-16.0); LYMPHOCYTES # (AUTO) 1.3 K/uL (2.5-16.5); LYMPHOCYTES % (AUTO) 21.1 % (20.5-51.1); MEAN CORPUSCULAR HEMOGLOBIN 30 pg (27-31); MEAN CORPUSCULAR HGB CONC 34 g/dL (33-37); MEAN CORPUSCULAR VOLUME 88.3 fL (80-94); MONOCYTES # (AUTO) 0.6 K/uL (0.8-1.0); MONOCYTES % (AUTO) 9.8 % (1.7-9.3); NEUTROPHILS % (AUTO) 65.5 % (42.2-75.2); PLATELET COUNT (AUTO) 209 K/uL (140-450); RED BLOOD CELL COUNT(AUTO) 3.59 MIL/uL (4.20-5.40); RED CELL DISTRIBUTION WIDTH 13.5 % (11.6-13.7); WHITE BLOOD COUNT (AUTO) 6.2 K/uL (4.8-10.8)
--- NOTE | 2019-06-11 06:40 | NUR ---
PT IN STABLE CONDITION, WILL ENDORSE PT TO DAY SHIFT NURSE FOR CONTINUOUS CARE.
[2019-06-11 06:55] LABS: ANION GAP 11.5 (8-16); CARBON DIOXIDE 26.2 mmol/L (21-32); CREATININE 0.6 mg/dL (0.6-1.3); POTASSIUM 3.7 mmol/L (3.5-5.1)
--- NOTE | 2019-06-11 07:10 | NUR ---
Received report from pm nurse Keyshawn. GT residual currently 50ml. Bowel sounds normoactive on all quads. Resumed GT feeding of Nepro @ 35ml/h. HOB kept elevated 30. Del Angel cath intact & draining clear yellow urine. Left femoral 3-lumen central line intact, patent, & asymptomatic.
[2019-06-11 08:00] VITALS: BP 90/51
--- NOTE | 2019-06-11 08:09 | NUR ---
CONTACTED Floyd MORALES REGARDING THE PICC LINE PLACEMENT ORDER (PT ALREADY HAVE A WORKING LEFT FEMORAL CENTRAL LINE). PER DR. MCDANIEL, SNF CAN BETTER MANAGE THE PICC LINE THAN THE FEMORAL CENTRAL LINE AND FOR BETTER INFECTION CONTROL. Floyd MORALES WILL BE HERE IN AN HOUR TO SIGN THE CONSENT FOR MEDICAL NECESSITY FOR PICC LINE. SPOKE WITH MARCIA FROM [facility], [facility] PICC LINE NURSE WILL CALL FOR ETA. PRERNA ASSIGNED MADE AWARE.
[2019-06-11] MEDS: CHOLECALCIFEROL 1,000 IU TAB PO SCH (08:40)
[2019-06-11] MEDS: TOPIRAMATE 100 MG TAB PO SCH (08:40)
[2019-06-11] MEDS: CALCIUM CARB/VIT-D 500 MG/200 IU 1 TAB PO SCH ×3 (08:40→17:14)
[2019-06-11] MEDS: LACTOBACILLUS RHAMNOSUS GG 1 EACH CAP PO SCH (08:40)
[2019-06-11] MEDS: MIDODRINE 5 MG TAB PO SCH ×3 (08:40→17:14)
[2019-06-11] MEDS: levETIRAcetam 500 MG TAB PO SCH (08:40)
[2019-06-11] MEDS: VIT-B COMP/VIT-C/FOLIC ACID 1 TAB PO SCH (08:41)
[2019-06-11] MEDS: CLOBAZAM 20 MG PO SCH (08:42)
[2019-06-11 10:48] LABS: HEPATITIS B CORE AB TOTAL POSITIVE (NEGATIVE)
--- NOTE | 2019-06-11 11:10 | NUR ---
Smitha Yang from [facility] came in to see pt. Contact # [phone], fax [phone]. head swamper aware.
[2019-06-11 12:07] VITALS: BP 109/62
--- NOTE | 2019-06-11 12:30 | NUR ---
Received call from Marquis (PICC nurse) stating he will arrive in 20min to see patient.
--- NOTE | 2019-06-11 12:33 | NUR ---
FOLLOWED UP WITH MARCIA FROM [facility] REGARDING PICC LINE NURSE ETA. PER MARCIA, SHE WILL GIVE CAROLA A CALL.
--- NOTE | 2019-06-11 12:50 | NUR ---
Marquis (PICC nurse) arrive in room for PICC insertion. Tootie ([facility]) notified.
--- NOTE | 2019-06-11 13:30 | NUR ---
Per Marquis (PICC nurse), PICC placement confirmed with xray and ready to use. Right upper arm PICC in plcae (5Fr PowerPICC; arm circumference: 31cm; external cath: 2cm). Patient tolerated procedure well.
--- NOTE | 2019-06-11 13:54 | NUR ---
Left femoral central line removed, catheter intact. Site with min bleeding, applied pressure for 5mins then covered with dry gauze and transparent dressing. Pt shows no signs of pain/discomfort.
[2019-06-11 16:00] VITALS: BP 102/54
--- NOTE | 2019-06-11 16:35 | NUR ---
Jolly Barajas, field nurse case manager, notified of discharge plan to SNF; verbalized understanding and agree with plan of care. Telephone report given to Nikkie nurse from [facility].
--- NOTE | 2019-06-11 17:00 | NUR ---
Del Angel cath discontinued. Urine collection bag with 200ml clear yellow urine. No bladder distention.
[2019-06-11] MEDS ORDERED: CEFT1SOL1 IV (17:08)
[2019-06-11] MEDS ORDERED: ROC2I IJ (17:08)
--- NOTE | 2019-06-11 19:14 | NUR ---
Patient left via gurney with [facility] transport for discharge to [facility]. Right upper arm PICC intact & asymptomatic. GT intact & asymptomatic. Pt stable, no signs of distress. Pt's home med vimpat 2tabs and clobazam 2tabs given to EMT.
== END 2019-06-11 19:15 | DRG 720 ==
LOC: MED 13:53 → MIC 17:22 → MTU 06-09 18:10
PROVIDERS: ADMIT Internal Medicine Cardiovascular Disease; ATTEND Internal Medicine Cardiovascular Disease
PROC: 0DH63UZ Insertion of Feeding Device into Stomach, Percutaneous Approach (ICD-10-PCS; 2019-06-09)
PROC: 02HV33Z Insertion of Infusion Device into Superior Vena Cava, Percutaneous Approach (ICD-10-PCS; principal; 2019-06-11)
PROC: B548ZZA Ultrasonography of Superior Vena Cava, Guidance (ICD-10-PCS; 2019-06-11)
DX: A41.1 Sepsis due to other specified staphylococcus (principal); J96.01 Acute respiratory failure with hypoxia; R65.21 Severe sepsis with septic shock; E43 Unspecified severe protein-calorie malnutrition; D61.818 Other pancytopenia; J18.9 Pneumonia, unspecified organism; E87.0 Hyperosmolality and hypernatremia; E83.51 Hypocalcemia; K31.84 Gastroparesis; R13.10 Dysphagia, unspecified; E87.6 Hypokalemia; N39.0 Urinary tract infection, site not specified; B96.89 Other specified bacterial agents as the cause of diseases classified elsewhere; M81.0 Age-related osteoporosis without current pathological fracture; G40.909 Epilepsy, unspecified, not intractable, without status epilepticus; I51.7 Cardiomegaly; F79 Unspecified intellectual disabilities; E86.0 Dehydration; K59.00 Constipation, unspecified; R94.5 Abnormal results of liver function studies; R74.0 Nonspecific elevation of levels of transaminase and lactic acid dehydrogenase [LDH]; R68.0 Hypothermia, not associated with low environmental temperature; R73.9 Hyperglycemia, unspecified; R00.1 Bradycardia, unspecified; E78.5 Hyperlipidemia, unspecified; E03.9 Hypothyroidism, unspecified; R62.7 Adult failure to thrive; Z68.36 Body mass index [BMI] 36.0-36.9, adult; Q90.9 Down syndrome, unspecified; Z79.899 Other long term (current) drug therapy
CPT/HCPCS: 36415; 36556; 70450; 71045; 76705; 80048; 80053; 80076; 80202; 81001; 81025; 82150; 82550; 82553; 82948; 83605; 83690; 83735; 83880; 84100; 84439; 84443; 84484; 84702; 84703; 85025; 85651; 86140; 86704; 86706; 86708; 86709; 86803; 87040; 87081; 87086; 87186; 87340; 87804; 92526; 92610; 93005; 94640; 96365; 96368; 99285; C1751; J0696; J1200; J1265; J2250; J2543; J3010; J3370; J3490; J7030; J7042; J7060; J7620; Q0092